=== PATIENT | male | born 1970 | race Two or more races ===

== ENCOUNTER 2020-01-31 06:04 | Day surgery (SDC) | payer OTHER, SELFPAY ==
[2020-01-23 14:23] VITALS: BMI 36.1
--- NOTE | 2020-01-26 15:32 | P.CONAN_ITS ---
Documented by User: Marjan Ann 01/26/20 15:34 HPI - Anesthesia Eval Consult details Narrative: 49yo M for EGD and Colonoscopy REPLACED BY [facility] Past Medical History Medical History (Updated 01/31/20 @ 07:35 by Tiarra Avery) Anxiety GERD (gastroesophageal reflux disease) Glaucoma High BMI History of headache HTN (hypertension) Insomnia Multiple fractures Renal calculi Sleep apnea Status post open reduction and internal fixation (ORIF) of fracture Venous stasis Surgical History Surgical History H/O gastric bypass H/O hand surgery History of cholecystectomy Hx of colonoscopy Hx of esophagogastroduodenoscopy Social History Social History Smoking Status: Never smoker Use of substances other than those prescribed or required for medical reasons: No Advance Directives Information Provided: No Meds Allergies Allergy/AdvReac Type Severity Reaction Status Date / Time hydromorphone [From DILAUDID] Allergy Severe STOPPED Verified 01/23/20 14:32 BREATHING Home Medications Medication Instructions Recorded Confirmed Type amitriptyline 50 mg PO BEDTIME 01/23/20 01/23/20 History buprenorphine-naloxone [Suboxone] 1 film SUBLINGUAL DAILY 01/23/20 01/23/20 History clonazepam 2 mg PO BEDTIME 01/23/20 01/23/20 History gabapentin 400 mg PO TID 01/23/20 01/23/20 History lisinopril 10 mg PO DAILY 01/23/20 01/23/20 History meclizine 25 mg PO DAILY PRN 01/23/20 01/23/20 History pantoprazole 40 mg PO DAILY 01/23/20 01/23/20 History prazosin 6 mg PO BEDTIME 01/23/20 01/23/20 History ramelteon [Rozerem] 8 mg PO BEDTIME 01/23/20 01/23/20 History Exam Exam Date and Time: January 26, 2020 1532 Height,Weight and Vital Signs: Height 5 ft 6 in Weight 101.605 kg Assessment and Plan Assessment Anesthesia Assessment: Chart Reviewed Documented by User: Tiarra Avery 01/31/20 07:38 REPLACED BY [facility] Past Medical History Medical History (Updated 01/31/20 @ 07:35 by Tiarra Avery) Anxiety GERD (gastroesophageal reflux disease) Glaucoma High BMI History of headache HTN (hypertension) Insomnia Multiple fractures Renal calculi Sleep apnea Status post open reduction and internal fixation (ORIF) of fracture Venous stasis Surgical History Surgical History H/O gastric bypass H/O hand surgery History of cholecystectomy Hx of colonoscopy Hx of esophagogastroduodenoscopy Social History Social History Smoking Status: Never smoker Use of substances other than those prescribed or required for medical reasons: No Advance Directives Information Provided: No Meds Allergies Allergy/AdvReac Type Severity Reaction Status Date / Time hydromorphone [From DILAUDID] Allergy Severe STOPPED Verified 01/23/20 14:32 BREATHING Home Medications Medication Instructions Recorded Confirmed Type amitriptyline 50 mg PO BEDTIME 01/23/20 01/23/20 History buprenorphine-naloxone [Suboxone] 1 film SUBLINGUAL DAILY 01/23/20 01/23/20 History clonazepam 2 mg PO BEDTIME 01/23/20 01/23/20 History gabapentin 400 mg PO TID 01/23/20 01/23/20 History lisinopril 10 mg PO DAILY 01/23/20 01/23/20 History meclizine 25 mg PO DAILY PRN 01/23/20 01/23/20 History pantoprazole 40 mg PO DAILY 01/23/20 01/23/20 History prazosin 6 mg PO BEDTIME 01/23/20 01/23/20 History ramelteon [Rozerem] 8 mg PO BEDTIME 01/23/20 01/23/20 History Exam Narrative Narrative: Full Neck Airway Mallampati Class: II TM Dist: >3cm Neck ROM: Full Heart: RRR Lungs: CTA Assessment and Plan Assessment Anesthesia Assessment: Anesthesia Plan Discussed and Chart Reviewed Final Anesthetic Review NPO: Yes ASA Class: III Final Preanesthetic Review: Meds/Allgs Chart Reviewed, Consent Obtained/Reviewed and Anes Risks/Benef Reviewed Patient Risk: Intermediate Procedure Risk: Intermediate Anesthetic Plan Anesthetic Plan: MAC: Disposition: Standard PACU
[2020-01-31 06:46] VITALS: BP 125/80; PULSE 85; RESP 16; TEMP 36.8; O2SAT 94
[2020-01-31] MEDS: Lactated Ringers 1,000 ML 100 ML IVCONT (07:04)
--- NOTE | 2020-01-31 07:33 | MHC.SHP ---
Pre-Procedural Eval Section A The patient is an INPATIENT: No The History & Physical has been completed within 30 days and I have reviewed it.: Yes Section B Chief Complaint: Screening, Gerd Details of Present Illness: Colon cancer screening, GERD Relevant Family History (Specify if Yes): No Relevant Social History: None Present Medications: see Short Stay Collaborative assessment Medical History: Significant History (Headaches, glaucoma, insomnia, anxiety, kidney stones, multiple fractures due to trauma, hypertension, RLE venous stasis, GERD.) History of Previous Operations: Relevant previous surgery/procedure and date(s) ( Lap choly 2016, right hand surgery 2016, EGD 2016, colonoscopy Dr. Mckeon 2014, right forearm OROF, right ankle ORIF, left leg or IBS, gastric bypass, REV LRYGB 12/20-.) Allergies: Allergies Allergy/AdvReac Type Severity Reaction Status Date / Time hydromorphone [From DILAUDID] Allergy Severe STOPPED Verified 01/23/20 14:32 BREATHING Review of Systems Sugical H&P ROS: Negative: Cardiovascular, Respiratory, Gastrointestinal, Genitourinary and Musculoskeletal and Yes, Specify: Constitution (Morbidly obese) Exam Surgical H&P Exam: Normal: HEENT, Normal: Heart, Normal: Lungs and Normal: Abdomen Exam Comment: Morbidly obese Plan Diagnosis/Plan: Unchanged Patient has been examined and remains a candidate for the planned procedure
[2020-01-31 08:54] VITALS: BP 116/77; PULSE 84; RESP 12; TEMP 36.2; O2SAT 95
[2020-01-31 09:14] VITALS: BP 119/80; PULSE 80; RESP 18; TEMP 36.1; O2SAT 96
--- NOTE | 2020-01-31 09:30 | HO.POSTANES ---
Post Anesthesia Evaluation Post Anesthesia Evaluation Vital Signs: Vital Signs Temp Pulse Resp BP Pulse Ox 01/31/20 09:14 97 F 80 18 119/80 96 01/31/20 08:54 97.2 F 84 12 116/77 95 01/31/20 06:46 98.2 F 85 16 125/80 94 Anesthesia: Monitored Mental Status: Awake Pain Control: Satisfactory Nausea/Vomiting: None Hydration: Adequate Anesthesia-Related Issues: No Anes. Related Issues
--- NOTE | 2020-02-26 14:57 | P.OP_ITS ---
Operative Note Operative Note Narrative: Date of procedure: 01/31/20 Pre-op diagnosis: Colon cancer screening, GERD Post-op diagnosis: other (RYGB anatomy, diverticulosis, hemorrhoids) Procedure: FLEXIBLE TRANSORAL UPPER GASTROINTESTINAL ENDOSCOPY AND COLONOSCOPY TILL CECUM UPPER ENDOSCOPY Consent: Indications for the procedure and potential complications of bleeding, perforation, reaction to medications and missed diagnosis were discussed with the patient and informed consent was obtained. Instrument: Olympus GIF H 190 mid size upper endoscope Monitoring: Vital signs and clinical assessment, continuous EKG monitoring, Pulse oximetry, Carbon Dioxide monitoring and blood pressure monitoring were done throughout the procedure. Procedure: The patient was placed in the left lateral decubitis position and pre-procedure medications were administered and a bite block was placed. The endoscope was inserted into the mouth and advanced under direct vision to the third part of duodenum. A careful inspection was made as the upper endoscope was withdrawn including a retroflexed examination of the proximal stomach; Findings and interventions are described below. Findings: Larynx: Normal Esophagus: GE junction at 35 cms. Tortuous esophagus with increased tertiary contractions without stricture or ring. No esophagitis or Mercedes's.. Stomach: Christopher en Y Gastric bypass anatomy. Normal anastomosis at 37 cms. Biopsies were obtained from the gastric pouch to check for H Pylori. Jejunum: Normal Christopher limb. Intervention: Biopsies as noted above COLONOSCOPY PROCEDURE NOTE Instrument: Olympus PCF H 190 L variable stiffness pediatric colonoscope Monitoring: Vital signs and clinical assessment, intermittent blood pressure monitoring, continuous EKG monitoring, Pulse oximetry and Carbon Dioxide monitoring were done throughout the procedure. Colon withdrawl time was 15 minutes. Procedure: The patient was placed in the left lateral decubitis position and pre-procedure medications were administered. After a digital rectal examination of the ano-rectum, the video colonoscope was inserted into the rectum and advanced through the colon to the cecum. The colonoscope was slowly withdrawn in a retrograde panoramic fashion and the colon mucosa was carefully examined including a retroflexed view of the rectum. Findings and interventions are described below. Procedure Difficulty: Without difficulty Findings: Terminal Ileum: Not evaluated Cecum: Normal Ascending Colon: Normal Transverse Colon: Normal Descending Colon: Normal Sigmoid Colon: Moderate diverticulosis Rectum: Normal Ano-rectum: Moderate internal hemorrhoids Colon preparation: Good after some irrigation Impression and Post Procedure Diagnosis: Endoscopy Findings: ESOPHAGUS: GE junction at 35 cms. Tortuous esophagus with increased tertiary contractions without stricture or ring. No esophagitis or Mercedes's. STOMACH: Christopher en Y Gastric bypass anatomy. Normal anastomosis at 37 cms. Biopsies were obtained from the gastric pouch to check for H Pylori. JEJUNUM: Normal Christopher limb. Colonoscopy Findings: No polyps were detected Moderate diverticulosis seen in the sigmoid colon Moderate hemorrhoids on retroflexed exam. Plan: Await pathology results Patient has an appointment on 02[facility]14/20in [facility] with LEESA Gustafson. Repeat Colonoscopy in 10 years. Above findings were reviewed with the patient and diverticulosis handouts were given in the discharge area Surgeon: Ja Pedro MD Anesthesia: MAC (Dee Dee Allan CRNA & Dr Avery) Dock Supervisor: Betina Guido Pathology: other (Gastric pouch.) Condition: stable Disposition: PACU
== END 2020-01-31 10:01 | disposition home or self-care (01) ==
PROVIDERS: PCP Internal Medicine; Visit Provider Internal Medicine Gastroenterology
PROC: (CPT 45378; principal; 2020-01-31 07:20)
DX: Z12.11 Encounter for screening for malignant neoplasm of colon (principal); K57.30 Diverticulosis of large intestine without perforation or abscess without bleeding; K64.8 Other hemorrhoids; K21.9 Gastro-esophageal reflux disease without esophagitis; K22.8 Other specified diseases of esophagus; Z98.84 Bariatric surgery status; Z98.0 Intestinal bypass and anastomosis status
CPT/HCPCS: 45378; 43239; 88305; 88342

== ENCOUNTER → 2020-02-21 12:41 | Outpatient (BNVA) | payer OTHER, SELFPAY | PROVIDERS: PCP Internal Medicine; Visit Provider Physician Assistant | DX: K57.30 Diverticulosis of large intestine without perforation or abscess without bleeding (principal); K64.9 Unspecified hemorrhoids; Z98.890 Other specified postprocedural states | CPT/HCPCS: 99212 ==

== ENCOUNTER 2020-05-16 13:20 | Outpatient (REF) | payer OTHER, SELFPAY | END 2020-05-16 13:21 | disposition home or self-care (01) | LOC: HO.LAB 13:20 | PROVIDERS: PCP Internal Medicine; Visit Provider Internal Medicine | DX: Z20.822 Contact with and (suspected) exposure to COVID-19 (principal) | CPT/HCPCS: 36415; C9803; U0003 ==

== ENCOUNTER 2020-09-26 10:50 | Outpatient (REF) | payer OTHER, SELFPAY ==
[2020-09-26 11:42] LABS: MANUAL DIFF FLAG NO
[2020-09-26 11:47] LABS: Basophils Percent Auto 0.6 % (0-2); Eosinophils Absolute Auto 0.3 X10*3/uL (0.0-0.4); Eosinophils Percent Auto 4.1 % (0-4); Hematocrit 34.6 % (42-52); Hemoglobin 11.3 g/dl (14.0-18.0); Imm Gran Abs Auto 0.01 X10*3/uL (0.00-0.03); Imm Gran Pct Auto 0.2 % (0.0-0.4); Lymphocytes Absolute Auto 2.3 X10*3/uL (1.2-4.9); Mean Corpuscular HGB Conc 32.7 g/dl (31.0-36.0); Mean Corpuscular Hemoglobin 27.8 pg (27.0-33.0); Mean Platelet Volume 11.5 fL (9.4-12.4); Monocytes Absolute Auto 0.5 X10*3/uL (0.1-1.2); Monocytes Percent Auto 8.6 % (2-11); Neutrophils Absolute Auto 3.2 X10*3/uL (2.0-8.3); Neutrophils Percent Auto 50.5 % (45-73); Platelet Count 182 X10*3/uL (160-400); Red Blood Count 4.07 X10*6/uL (4.60-5.80); Red Cell Distribution Width 13.9 % (11.0-16.0); White Blood Count 6.3 X10*3/uL (4.8-10.8)
--- NOTE | 2020-09-26 12:16 | ECG_ITS ---
Test Reason : PREOP Blood Pressure : / mmHG Vent. Rate : 073 BPM Atrial Rate : 073 BPM P-R Int : 168 ms QRS Dur : 090 ms QT Int : 384 ms P-R-T Axes : 072 -23 013 degrees QTc Int : 423 ms Normal sinus rhythm Normal ECG When compared to the previous EKG of No significant changes seen Referred By: Paul Madison Electronically Signed By:CARMITA REY MD
[2020-09-26 12:27] LABS: Alanine Aminotransferase 15 U/L (0-40); Albumin Level 3.6 g/dL (3.5-5.0); Alkaline Phosphatase 135 U/L (39-117); Anion Gap 10 (12-20); Aspartate Amino Transferase 27 U/L (5-37); Bilirubin Total 0.6 mg/dL (0.0-1.0); Blood Urea Nitrogen 15 mg/dL (9-16); Calcium 8.5 mg/dL (8.4-10.2); Carbon Dioxide 28 mmol/L (22-29); Chloride 106 mmol/L (96-108); Estimated Glomerular Filt Rate > 60; Glucose Random 118 mg/dL (60-115); Potassium 3.8 mmol/L (3.3-5.1); Sodium 140 mmol/L (135-145); Total Protein 6.3 g/dL (6.5-8.0)
== END 2020-09-26 10:51 | disposition home or self-care (01) ==
LOC: HO.LAB 10:50
PROVIDERS: PCP Internal Medicine; Visit Provider Internal Medicine
DX: Z01.818 Encounter for other preprocedural examination (principal); I10 Essential (primary) hypertension
CPT/HCPCS: 36415; 80053; 85025; 93005

== ENCOUNTER 2020-12-21 08:55 | Outpatient (REF) | payer OTHER, SELFPAY ==
[2020-12-21 09:21] LABS: MANUAL DIFF FLAG NO
[2020-12-21 09:27] LABS: Basophils Percent Auto 0.6 % (0-2); Eosinophils Absolute Auto 0.3 X10*3/uL (0.0-0.4); Eosinophils Percent Auto 4.9 % (0-4); Hematocrit 30.3 % (42-52); Hemoglobin 9.6 g/dl (14.0-18.0); Imm Gran Abs Auto 0.02 X10*3/uL (0.00-0.03); Imm Gran Pct Auto 0.4 % (0.0-0.4); Lymphocytes Absolute Auto 1.5 X10*3/uL (1.2-4.9); Mean Corpuscular HGB Conc 31.7 g/dl (31.0-36.0); Mean Corpuscular Hemoglobin 25.8 pg (27.0-33.0); Mean Corpuscular Volume 81.5 fL (80-98); Mean Platelet Volume 10.9 fL (9.4-12.4); Monocytes Absolute Auto 0.6 X10*3/uL (0.1-1.2); Monocytes Percent Auto 11.1 % (2-11); Neutrophils Absolute Auto 2.8 X10*3/uL (2.0-8.3); Platelet Count 182 X10*3/uL (160-400); Red Blood Count 3.72 X10*6/uL (4.60-5.80); Red Cell Distribution Width 14.3 % (11.0-16.0); White Blood Count 5.1 X10*3/uL (4.8-10.8)
[2020-12-21 09:57] LABS: Alanine Aminotransferase 28 U/L (0-40); Albumin Level 3.8 g/dL (3.5-5.0); Alkaline Phosphatase 145 U/L (39-117); Anion Gap 9 (12-20); Aspartate Amino Transferase 35 U/L (5-37); Bilirubin Total 0.7 mg/dL (0.0-1.0); Blood Urea Nitrogen 12 mg/dL (9-16); Calcium 8.5 mg/dL (8.4-10.2); Carbon Dioxide 26 mmol/L (22-29); Chloride 107 mmol/L (96-108); Cholesterol 182 mg/dL; Estimated Glomerular Filt Rate > 60; Glucose Fasting 95 mg/dL (60-99); HDL Cholesterol 48 mg/dL; LDL Cholesterol Calculated 124 mg/dl; Potassium 3.9 mmol/L (3.3-5.1); Sodium 138 mmol/L (135-145); Total Protein 6.5 g/dL (6.5-8.0); Triglycerides 53 mg/dL
[2020-12-21 10:12] LABS: Thyroid Stimulating Hormone 2.74 uIU/mL (0.32-4.0)
[2020-12-27 14:07] LABS: Vitamin D 25-OH, D2 <4 ng/mL; Vitamin D 25-OH, D3 29 ng/mL; Vitamin D 25-OH, Total 29 ng/mL (30-100)
== END 2020-12-21 08:56 | disposition home or self-care (01) ==
LOC: HO.LAB 08:55
PROVIDERS: PCP Internal Medicine; Visit Provider Internal Medicine
DX: E66.01 Morbid (severe) obesity due to excess calories (principal); E78.5 Hyperlipidemia, unspecified; I10 Essential (primary) hypertension; E55.9 Vitamin D deficiency, unspecified
CPT/HCPCS: 36415; 80053; 80061; 82306; 84443; 85025

== ENCOUNTER 2022-09-24 17:09 | Observation (INO) | payer OTHER, SELFPAY ==
--- NOTE | ~2022-09-24 | CT_ITS ---
EXAMINATION: CT ANGIOGRAM OF THE CHEST WITH AND WITHOUT CONTRAST (CT PULMONARY ANGIOGRAM FOR PE) CLINICAL INFORMATION: Reason for Exam + dimer, ams COMPARISON: Chest radiograph 09/24/2022 TECHNIQUE: Prior to contrast administration, noncontrast localization images were obtained. Subsequently, multidetector volumetric imaging was performed from the thoracic inlet to below the diaphragms following the administration of 75 mL Omnipaque 350 intravenous contrast. No contrast reaction reported Sagittal, coronal, and MIP oblique sagittal reformatted images were obtained on the CT workstation, uploaded to PACS, and reviewed. This CT examination was performed using dose optimization techniques as appropriate, variously including the following: *Automated exposure control *Adjustment of mA and/or kV according to patient size (this includes techniques or standardized protocols for targeted exams where dose is matched to indication/reason for exam; i.e. extremities or head) *Use of iterative reconstruction technique Total exam dose-length product 573 mGy-cm FINDINGS: QUALITY OF STUDY/CONTRAST BOLUS: Suboptimal. PULMONARY ARTERIES: Respiratory motion limits evaluation for subsegmental pulmonary emboli. No central, lobar or segmental pulmonary embolism. THORACIC AORTA: No aneurysm. CHEST WALL/AXILLA: No axillary lymphadenopathy. LUNGS: 4 mm solid right middle lobe pulmonary nodule, 7:169. A 3 mm solid left upper lobe pulmonary nodule, 7:161. 3 mm solid left lower lobe pulmonary nodule, 7:268. MEDIASTINUM: Heart is normal in size. No mediastinal lymphadenopathy. No hilar lymphadenopathy. CORONARY ARTERY CALCIFICATION: Coronary artery calcification is present. PLEURA: There is no pleural effusion. UPPER ABDOMEN: Status post cholecystectomy. Postsurgical changes of gastric bypass. Right hepatic lobe granulomas. OSSEOUS STRUCTURES: Remote healed right rib fracture deformities. CT/CT angio chest PE protocol IMPRESSION: * Respiratory motion limits evaluation for subsegmental pulmonary emboli. No central, lobar or segmental pulmonary embolism. * Several small solid pulmonary nodules measuring up to 4 mm. Assuming patient has no history of malignancy, recommend follow-up per Fleischner Society recommendations. According to the UPDATED 2017 Fleischner Society recommendations, the advised followup imaging for solid nodules < 6 mm is: LOW RISK PATIENT: No routine follow up. HIGH RISK PATIENT: Optional CT at 12 months. * Coronary artery calcification is present. Recommend collection with cardiac risk factors.
--- NOTE | ~2022-09-24 | MR_ITS ---
MRI OF THE BRAIN WITHOUT IV CONTRAST INDICATION: Question CVA. COMPARISON: Head CT 09/24/2022 TECHNIQUE: Multiplanar multisequence MR imaging of the brain was obtained without IV contrast. FINDINGS: There is no hydrocephalus, extra-axial surface collection, or herniation. There is mild chronic microangiopathy an there are chronic lacunar infarcts within the cerebellar hemispheres bilaterally. The major flow voids at the skull base are preserved. There is no acute infarct on diffusion-weighted imaging. There is no intracranial hemorrhage on the gradient recalled echo acquisition. The midline structures are normal. The cerebellar tonsils are normally positioned. The cerebellum and brainstem are normal. The craniocervical junction is normal. Osseous marrow signal intensity is homogenous. Right globe prosthesis. MR/MR head/brain wo con IMPRESSION: - No acute intracranial findings. No acute infarcts. - There is mild chronic microangiopathy an there are chronic lacunar infarcts within the cerebellar hemispheres bilaterally.
--- NOTE | ~2022-09-24 | CT_ITS ---
EXAMINATION: CT head/brain wo IV con CLINICAL INFORMATION: Reason for Exam ams COMPARISON: None. TECHNIQUE: Contiguous axial imaging was performed from the skull base to vertex without intravenous contrast. Sagittal and coronal reformatted images were obtained. This CT examination was performed using dose optimization techniques as appropriate, variously including the following: * Automated exposure control * Adjustment of mA and/or kV according to patient size (this includes techniques or standardized protocols for targeted exams where dose is matched to indication/reason for exam; i.e. extremities or head) Use of iterative reconstruction technique DLP: 869 mGy-cm FINDINGS: No acute osseous or soft tissue abnormality. Patchy paranasal sinus mucosal thickening. Periodontal disease. Mastoid air cells appear clear. Right globe prosthesis. There is no evidence of acute intracranial hemorrhage. Age indeterminant bilateral cerebellar lacunar infarcts. No abnormal mass effect or midline shift is seen. Michele to white matter differentiation is well preserved. No extra-axial fluid collections are identified. No hydrocephalus. CT/CT head/brain wo IV con IMPRESSION: 1. Age-indeterminate bilateral cerebellar lacunar infarcts. 2. Additional incidental findings as detailed above.
--- NOTE | ~2022-09-24 | XR_ITS ---
EXAMINATION: PORTABLE CHEST 1 VIEW CLINICAL INFORMATION: cp. COMPARISON: 10/01/2018. TECHNIQUE: Portable frontal view of the chest was obtained. FINDINGS: The lungs are hypoexpanded with basilar atelectasis. No focal infiltrate, effusion, edema, or pneumothorax. Central vascular markings likely related to the degree of hypoexpansion and portable technique. Cardiac and mediastinal silhouettes are within normal limits for technique. No acute bony abnormality seen. XR/XR chest 1V IMPRESSION: Hypoexpanded with basilar markings more likely due to atelectasis.
--- NOTE | 2022-09-24 17:19 | ECG_ITS ---
Test Reason : cp Blood Pressure : / mmHG Vent. Rate : 079 BPM Atrial Rate : 079 BPM P-R Int : 178 ms QRS Dur : 086 ms QT Int : 370 ms P-R-T Axes : 053 -30 010 degrees QTc Int : 424 ms Normal sinus rhythm Left axis deviation Minimal voltage criteria for LVH, may be normal variant ( R in aVL ) Abnormal ECG When compared with ECG of 26-SEP-2020 12:23, No significant change was found Referred By: Mat Bryan Electronically Signed By:Jarrett Shirley
--- NOTE | 2022-09-24 17:35 | ED.GENADULT ---
HPI - General Adult General Chief complaint: Altered Mental Status Stated complaint: AMS, LETHARGIC Time Seen by Provider: 09/24/22 17:18 Source: EMS Mode of arrival: EMS Limitations: no limitations and altered mental status History of Present Illness HPI narrative: 52-year-old male history of glaucoma, hypertension, opiate use disorder on Suboxone, obesity, TIA, GERD presenting to the emergency department for altered mental status, according to EMS he was found in a vehicle at [facility] in [place], pale, diaphoretic, not responding to questions. Unable to obtain history review of systems from patient as he is not responding to my questions however on arrival his vital signs are stable he appears nontoxic. Last known well time on clear To note, upon at my initial exam patient is intermittently following commands. Nodding his head to yes or no questions. Able to squeeze my hands upon asking patient to do so. No evident signs of trauma. Unable to obtain an NIH stroke scale due to patient not being able to participate in exam. Related Data Home Medications Medication Instructions Recorded Confirmed buprenorphine 4 mg-naloxone 1 mg 1 film sublingual DAILY 01/23/20 12/31/20 sublingual film (Suboxone) clonazepam 2 mg tablet 2 mg PO BEDTIME 01/23/20 12/31/20 Previous Rx's Medication Instructions Recorded Shower Chair #1 ea 10/17/20 hand held shower head #1 ea 10/17/20 hand rail for shower #1 ea 10/17/20 shower mat #1 ea 10/17/20 toilet seat elevator with handles #1 10/17/20 amitriptyline 50 mg tablet 50 mg PO BEDTIME 90 days #90 tabs 07/03/22 lisinopril 10 mg tablet 10 mg PO DAILY 90 days #90 tabs 07/18/22 meclizine 25 mg tablet 25 mg PO DAILY PRN Vertigo 90 days 08/31/22 #90 tabs gabapentin 600 mg tablet 600 mg PO TID 30 days #90 tabs 09/23/22 Allergies Allergy/AdvReac Type Severity Reaction Status Date / Time hydromorphone [From DILAUDID] Allergy Severe STOPPED Verified 09/12/22 10:17 BREATHING aripiprazole [Abilify] AdvReac Intermediate anxious Verified 09/12/22 10:17 Review of Systems Review of Systems: Yes Unobtainable due to mental status [facility] Past Medical History Attestation statement: The following information was validated with the patient. Source: old records reviewed and nursing notes reviewed Medical History (Updated 09/24/22 @ 21:53 by LEESA Pope) Anxiety Benign essential hypertension Degenerative joint disease of right ankle Diverticulosis large intestine w/o perforation or abscess w/o bleeding GERD (gastroesophageal reflux disease) GERD without esophagitis Glaucoma Hemorrhoids High BMI History of headache HTN (hypertension) Hx of substance abuse Insomnia Mild recurrent major depression Morbid obesity due to excess calories Morbid obesity with BMI of 45.0-49.9, adult Multiple fractures Normocytic anemia Opioid dependence on agonist therapy Renal calculi Sleep apnea Unable to bear weight Venous stasis Surgical History H/O gastric bypass H/O hand surgery History of cholecystectomy Hx of colonoscopy Hx of esophagogastroduodenoscopy Status post open reduction and internal fixation (ORIF) of fracture Family History Family History Mother No problems noted. Father No problems noted. Social History Social History Household Members: Significant Other Housing: Apartment Alcohol intake: never Patient Tobacco Use Status: Never used Tobacco Smoked in Last 30 Days: No e-Cigarette/Vaping Use: Never Used Second Hand Smoke Exposure: No Use of substances other than those prescribed or required for medical reasons: No Advance Directives: No Advance Directives Information Provided: No service: No Current occupational status: disabled Cognitive needs: Yes (cane) Hearing needs: No Vision needs: Yes (glasses) Physical Exam ED Vital Signs: Vital Signs - 24 hr 09/24/22 17:38 09/24/22 19:32 Temperature 97.6 F 97.7 F Pulse Rate 79 73 Respiratory Rate 12 20 Blood Pressure 146/66 H 113/71 Pulse Oximetry 98 Oxygen Delivery Method Room Air Room Air BMI result Body Mass Index 41.6 Vital signs stable. Appearance: Alert.? Awake. Not answering questions not speaking. Intermittently following commands.? No acute distress.? Head: Normocephalic, atraumatic, no step-offs or deformities Eyes: Left pupil, round and reactive to light.? Patient has a glass right eye. Positive corneal reflex on the left. ENT: Pharynx normal.? Neck: Normal inspection.? Neck supple.? CVS: Normal heart rate and rhythm.? Pulses normal.? Respiratory: No respiratory distress.? Breath sounds normal.? Abdomen: Soft and nontender.? Skin: Skin warm and dry.? Normal skin color.? Normal skin turgor.? Extremities: No lower extremity edema.? No calf ttp. 5/5 strength to bilateral upper and lower extremities Back: No midline tenderness, no C-spine tenderness, full range of motion, no CVA tenderness bilaterally Neuro: Patient not participating and neurological assessment. Course Reevaluation(s) Reevaluation #1: Patient's arrives and tells me that she received a phone call from patient while he was in the [facility] parking lot stating he was not feeling well, she reports that this is all patient was saying. She states suddenly stopped talking, she went to [facility] and found him diaphoretic and pale. When I ask her about patient's medical history she denies history of opiate abuse and is not aware that patient is on Suboxone. When I went back into the room patient was speaking without difficulty to family members. Clear sentences. States wants to get out here. Time: 17:39 Reevaluation #2: Patient is still conversing with family at the bedside. Call out to Neurology, CT showing age-indeterminate bilateral lacunar infarct. Patient's NIH stroke scale 0 at this time, now participating in neurological exam. Normal [id number], [id number]. Time: 19:39 Reevaluation #3: Discussed this case with Dr. Cartagena who states that unlikely that this is a stroke case likely a different etiology. No indication for tPA. Time: 19:40 Additional Reevaluation(s): UA unremarkable, urine toxicology negative. CT head and brain age indeterminate bilateral cerebellar lacunar infarcts. I do not suspect acute stroke based off patient's presentation, more concerning for possible TIA. CTA of chest pending. Patient to be admitted to the hospital for observation. Medications Administered Discontinued Medications Generic Name Dose Route Start Last Admin Trade Name Freq PRN Reason Stop Dose Admin Sodium Chloride 1,000 mls @ 999 mls/hr 09/24/22 17:30 09/24/22 19:48 Ns IV 09/24/22 18:30 Infused .Q1H1M AVA Infusion Iohexol 100 ml 09/24/22 19:43 09/24/22 19:43 Iohexol 350 Mg/Ml 100 Ml Infus..Btl IV 09/24/22 19:44 75 ml ONCE ONE Administration Medical Decision Making Medical Decision Making MDM Narrative: 52-year-old male presents for altered mental status brought in by ambulance unable to provide history review of systems. Found in [facility] parking lot. Family coming to the hospital per EMS. Physical exam patient not responding to questions, not participating in history, or physical, unable to obtain an accurate NIH stroke scale. Regular rate and rhythm. Lungs clear. Abdomen soft nontender nondistended. No evidence of trauma at this time. Concerns for possible polysubstance abuse, psychiatric etiology. Will rule out intracranial hemorrhage or stroke although unlikely. Unlikely metabolic derangements or electrolyte abnormalities or infection. Plan basic labs, imaging, urine. Will obtain more information from family when they arrive. Differential Diagnosis Differential Diagnoses: The differential diagnosis associated with the presentation includes Concerns for possible polysubstance abuse, psychiatric etiology. Will rule out intracranial hemorrhage or stroke although unlikely. Unlikely metabolic derangements or electrolyte abnormalities or infection. Lab Data 09/24/22 17:51 09/24/22 17:51 Labs: Lab Results 09/24/22 09/24/22 09/24/22 Range/Units 17:50 17:50 17:50 WBC (4.8-10.8) X10*3/uL RBC (4.60-5.80) X10*6/uL Hgb (14.0-18.0) g/dl Hct (42.0-52.0) % MCV (80.0-98.0) fL MCH (27.0-33.0) pg MCHC (31.0-36.0) g/dl RDW (11.0-16.0) % Plt Count (160-400) X10*3/uL MPV (9.4-12.4) fL Immature Gran % (Auto) (0.0-0.4) % Neut % (Auto) (45-73) % Lymph % (Auto) (20-40) % Barber % (Auto) (2-11) % Eos % (Auto) (0-4) % Baso % (Auto) (0-2) % Lymph # (Auto) (1.2-4.9) X10*3/uL Barber # (Auto) (0.1-1.2) X10*3/uL Eos # (Auto) (0.0-0.4) X10*3/uL Baso # (Auto) (0.0-0.2) X10*3/uL Abs Immat Gran (auto) (0.00-0.03) X10*3/uL Absolute Neuts (auto) (2.0-8.3) x10*3/uL Absolute Nucleated RBC (0.0-0.012) X10*3/uL Nucleated RBC % (auto) (0.0-0.2) /100WBC D-Dimer High Sensitivty NG/ML Sodium (135-145) mmol/L Potassium (3.3-5.1) mmol/L Chloride (96-108) mmol/L Carbon Dioxide (22-29) mmol/L Anion Gap (12-20) BUN (9-16) mg/dL Creatinine (0.5-1.4) mg/dL Estim Creat Clear Calc Estimated GFR Random Glucose (60-115) mg/dL Lactic Acid 1.3 (0.5-2.0) mmol/L Calcium (8.4-10.2) mg/dL Magnesium (1.6-2.6) mg/dL Total Bilirubin (0.0-1.0) mg/dL AST (5-37) U/L ALT (0-40) U/L Alkaline Phosphatase (39-117) U/L Total Creatine Kinase (38-174) U/L Troponin I High Sens (<3.5-35.0) ng/L B-Natriuretic Peptide 26 (<100) pg/mL Total Protein (6.5-8.0) g/dL Albumin (3.5-5.0) g/dL Urine Color Urine Appearance Urine pH (5.0-9.0) Ur Specific Pheba (1.005-1.025) Urine Protein (Neg-Trace) mg/dL Urine Glucose (UA) (Negative) mg/dL Urine Ketones (Negative) mg/dL Urine Blood (Negative) Urine Nitrite (Negative) Ur Leukocyte Esterase (Negative) Salicylates (15-30) mg/dL Urine Opiates Screen (Not Detect) Urine Fentanyl Screen (Not Detect) Acetaminophen (<30) mcg/mL Ur Barbiturates Screen (Not Detect) Ur Phencyclidine Scrn (Not Detect) Ur Amphetamines Screen (Not Detect) U Benzodiazepines Scrn (Not Detect) Urine Cocaine Screen (Not Detect) U Marijuana (THC) Screen (Not Detect) Ethyl Alcohol mg/dL COVID-19 (MIRANDA) Negative (Negative) COVID-19 Clin Com See Note 09/24/22 09/24/22 09/24/22 Range/Units 17:51 17:51 17:51 WBC 7.5 (4.8-10.8) X10*3/uL RBC 4.41 L (4.60-5.80) X10*6/uL Hgb 11.5 L (14.0-18.0) g/dl Hct 36.8 L (42.0-52.0) % MCV 83.4 (80.0-98.0) fL MCH 26.1 L (27.0-33.0) pg MCHC 31.3 (31.0-36.0) g/dl RDW 14.9 (11.0-16.0) % Plt Count 185 (160-400) X10*3/uL MPV 11.5 (9.4-12.4) fL Immature Gran % (Auto) 0.3 (0.0-0.4) % Neut % (Auto) 65.7 (45-73) % Lymph % (Auto) 19.5 L (20-40) % Barber % (Auto) 10.1 (2-11) % Eos % (Auto) 3.7 (0-4) % Baso % (Auto) 0.7 (0-2) % Lymph # (Auto) 1.5 (1.2-4.9) X10*3/uL Barber # (Auto) 0.8 (0.1-1.2) X10*3/uL Eos # (Auto) 0.3 (0.0-0.4) X10*3/uL Baso # (Auto) 0.1 (0.0-0.2) X10*3/uL Abs Immat Gran (auto) 0.02 (0.00-0.03) X10*3/uL Absolute Neuts (auto) 4.9 (2.0-8.3) x10*3/uL Absolute Nucleated RBC 0.000 (0.0-0.012) X10*3/uL Nucleated RBC % (auto) 0.0 (0.0-0.2) /100WBC D-Dimer High Sensitivty 271 NG/ML Sodium 141 (135-145) mmol/L Potassium 4.5 (3.3-5.1) mmol/L Chloride 106 (96-108) mmol/L Carbon Dioxide 27 (22-29) mmol/L Anion Gap 13 (12-20) BUN 11 (9-16) mg/dL Creatinine 1.08 (0.5-1.4) mg/dL Estim Creat Clear Calc 101.4 Estimated GFR > 60 Random Glucose 74 (60-115) mg/dL Lactic Acid (0.5-2.0) mmol/L Calcium 8.8 (8.4-10.2) mg/dL Magnesium 2.3 (1.6-2.6) mg/dL Total Bilirubin 0.8 (0.0-1.0) mg/dL AST 28 (5-37) U/L ALT 17 (0-40) U/L Alkaline Phosphatase 152 H (39-117) U/L Total Creatine Kinase 148 (38-174) U/L Troponin I High Sens (<3.5-35.0) ng/L B-Natriuretic Peptide (<100) pg/mL Total Protein 6.8 (6.5-8.0) g/dL Albumin 3.9 (3.5-5.0) g/dL Urine Color Urine Appearance Urine pH (5.0-9.0) Ur Specific Pheba (1.005-1.025) Urine Protein (Neg-Trace) mg/dL Urine Glucose (UA) (Negative) mg/dL Urine Ketones (Negative) mg/dL Urine Blood (Negative) Urine Nitrite (Negative) Ur Leukocyte Esterase (Negative) Salicylates < 5.0 L (15-30) mg/dL Urine Opiates Screen (Not Detect) Urine Fentanyl Screen (Not Detect) Acetaminophen < 17 (<30) mcg/mL Ur Barbiturates Screen (Not Detect) Ur Phencyclidine Scrn (Not Detect) Ur Amphetamines Screen (Not Detect) U Benzodiazepines Scrn (Not Detect) Urine Cocaine Screen (Not Detect) U Marijuana (THC) Screen (Not Detect) Ethyl Alcohol < 10 mg/dL COVID-19 (MIRANDA) (Negative) COVID-19 Clin Com 09/24/22 09/24/22 09/24/22 Range/Units 17:51 18:44 18:44 WBC (4.8-10.8) X10*3/uL RBC (4.60-5.80) X10*6/uL Hgb (14.0-18.0) g/dl Hct (42.0-52.0) % MCV (80.0-98.0) fL MCH (27.0-33.0) pg MCHC (31.0-36.0) g/dl RDW (11.0-16.0) % Plt Count (160-400) X10*3/uL MPV (9.4-12.4) fL Immature Gran % (Auto) (0.0-0.4) % Neut % (Auto) (45-73) % Lymph % (Auto) (20-40) % Barber % (Auto) (2-11) % Eos % (Auto) (0-4) % Baso % (Auto) (0-2) % Lymph # (Auto) (1.2-4.9) X10*3/uL Barber # (Auto) (0.1-1.2) X10*3/uL Eos # (Auto) (0.0-0.4) X10*3/uL Baso # (Auto) (0.0-0.2) X10*3/uL Abs Immat Gran (auto) (0.00-0.03) X10*3/uL Absolute Neuts (auto) (2.0-8.3) x10*3/uL Absolute Nucleated RBC (0.0-0.012) X10*3/uL Nucleated RBC % (auto) (0.0-0.2) /100WBC D-Dimer High Sensitivty NG/ML Sodium (135-145) mmol/L Potassium (3.3-5.1) mmol/L Chloride (96-108) mmol/L Carbon Dioxide (22-29) mmol/L Anion Gap (12-20) BUN (9-16) mg/dL Creatinine (0.5-1.4) mg/dL Estim Creat Clear Calc Estimated GFR Random Glucose (60-115) mg/dL Lactic Acid (0.5-2.0) mmol/L Calcium (8.4-10.2) mg/dL Magnesium (1.6-2.6) mg/dL Total Bilirubin (0.0-1.0) mg/dL AST (5-37) U/L ALT (0-40) U/L Alkaline Phosphatase (39-117) U/L Total Creatine Kinase (38-174) U/L Troponin I High Sens < 2.7 (<3.5-35.0) ng/L B-Natriuretic Peptide (<100) pg/mL Total Protein (6.5-8.0) g/dL Albumin (3.5-5.0) g/dL Urine Color Yellow Urine Appearance Clear Urine pH 8.0 (5.0-9.0) Ur Specific Pheba 1.010 (1.005-1.025) Urine Protein Negative (Neg-Trace) mg/dL Urine Glucose (UA) Negative (Negative) mg/dL Urine Ketones Negative (Negative) mg/dL Urine Blood Negative (Negative) Urine Nitrite Negative (Negative) Ur Leukocyte Esterase Negative (Negative) Salicylates (15-30) mg/dL Urine Opiates Screen Not Detected (Not Detect) Urine Fentanyl Screen Not Detected (Not Detect) Acetaminophen (<30) mcg/mL Ur Barbiturates Screen Not Detected (Not Detect) Ur Phencyclidine Scrn Not Detected (Not Detect) Ur Amphetamines Screen Not Detected (Not Detect) U Benzodiazepines Scrn Not Detected (Not Detect) Urine Cocaine Screen Not Detected (Not Detect) U Marijuana (THC) Screen Not Detected (Not Detect) Ethyl Alcohol mg/dL COVID-19 (MIRANDA) (Negative) COVID-19 Clin Com Critical Care Time Critical Care Time Critical Care Time: No Discharge Plan Discharge Clinical Impression: Altered mental status, Brain TIA Patient Disposition: Still a Patient Instructions: Altered Mental Status (ED), Transient Ischemic Attack (ED) Prescriptions: No Action (DME) Shower Chair Misc See Rx Instructions .ROUTE .MEDSUPPLY Qty: 1 0RF Rx Instructions: As directed (DME) shower mat See Rx Instructions .Route .MEDSUPPLY Qty: 1 0RF Rx Instructions: As directed (DME) toilet seat elevator with handles See Rx Instructions .Route .MEDSUPPLY Qty: 1 0RF Rx Instructions: As directed (DME) hand held shower head See Rx Instructions .Route .MEDSUPPLY Qty: 1 0RF Rx Instructions: As directed (DME) hand rail for shower See Rx Instructions .Route .MEDSUPPLY Qty: 1 0RF Rx Instructions: As directed amitriptyline 50 mg tablet 50 mg PO BEDTIME 90 Days Qty: 90 3RF lisinopril 10 mg tablet 10 mg PO DAILY 90 Days Qty: 90 3RF meclizine 25 mg tablet 25 mg PO DAILY PRN (Reason: Vertigo) 90 Days Qty: 90 1RF gabapentin 600 mg tablet 600 mg PO TID 30 Days Qty: 90 1RF clonazepam 2 mg Tablet 2 mg PO BEDTIME buprenorphine-naloxone [Suboxone] 4-1 mg Film 1 film SUBLINGUAL DAILY
[2022-09-24 17:38] VITALS: BP 146/66; PULSE 79; RESP 12; TEMP 36.4
[2022-09-24 17:55] VITALS: BP 126/87; PULSE 92; O2SAT 97; BMI 41.6
[2022-09-24 17:58] LABS: MANUAL DIFF FLAG NO
[2022-09-24 18:04] LABS: Basophils Absolute Auto 0.1 X10*3/uL (0.0-0.2); Basophils Percent Auto 0.7 % (0-2); Eosinophils Absolute Auto 0.3 X10*3/uL (0.0-0.4); Eosinophils Percent Auto 3.7 % (0-4); Hematocrit 36.8 % (42.0-52.0); Hemoglobin 11.5 g/dl (14.0-18.0); Imm Gran Abs Auto 0.02 X10*3/uL (0.00-0.03); Imm Gran Pct Auto 0.3 % (0.0-0.4); Lymphocytes Absolute Auto 1.5 X10*3/uL (1.2-4.9); Lymphocytes Percent Auto 19.5 % (20-40); Mean Corpuscular HGB Conc 31.3 g/dl (31.0-36.0); Mean Corpuscular Hemoglobin 26.1 pg (27.0-33.0); Mean Corpuscular Volume 83.4 fL (80.0-98.0); Mean Platelet Volume 11.5 fL (9.4-12.4); Monocytes Absolute Auto 0.8 X10*3/uL (0.1-1.2); Monocytes Percent Auto 10.1 % (2-11); Neutrophils Absolute Auto 4.9 x10*3/uL (2.0-8.3); Neutrophils Percent Auto 65.7 % (45-73); Platelet Count 185 X10*3/uL (160-400); Red Blood Count 4.41 X10*6/uL (4.60-5.80); Red Cell Distribution Width 14.9 % (11.0-16.0); White Blood Count 7.5 X10*3/uL (4.8-10.8)
[2022-09-24] MEDS: 0.9 % Sodium Chloride 1,000 ML 999 ML IV (18:11)
[2022-09-24 18:17] LABS: D Dimer High Sensitivity 271 NG/ML
[2022-09-24 18:20] LABS: Lactic Acid 1.3 mmol/L (0.5-2.0)
[2022-09-24 18:23] LABS: COVID-19 Test Negative (Negative); IDNOW Serial# BCCEAD1C
[2022-09-24 18:31] LABS: Alanine Aminotransferase 17 U/L (0-40); Albumin Level 3.9 g/dL (3.5-5.0); Alkaline Phosphatase 152 U/L (39-117); Anion Gap 13 (12-20); Aspartate Amino Transferase 28 U/L (5-37); Bilirubin Total 0.8 mg/dL (0.0-1.0); Blood Urea Nitrogen 11 mg/dL (9-16); Calcium 8.8 mg/dL (8.4-10.2); Carbon Dioxide 27 mmol/L (22-29); Chloride 106 mmol/L (96-108); Creatinine Clr Calc Pharmacy 101.4; Estimated Glomerular Filt Rate > 60; Ethanol < 10 mg/dL; Glucose Random 74 mg/dL (60-115); Magnesium 2.3 mg/dL (1.6-2.6); Potassium 4.5 mmol/L (3.3-5.1); Sodium 141 mmol/L (135-145); Total Protein 6.8 g/dL (6.5-8.0)
[2022-09-24 18:31] LABS: B Type Natriuretic Peptide 26 pg/mL (<100)
[2022-09-24 18:35] LABS: Troponin-I High Sensitivity < 2.7 ng/L (<3.5-35.0)
[2022-09-24 18:53] LABS: Salicylate < 5.0 mg/dL (15-30)
[2022-09-24 18:56] LABS: Appearance Urine Clear; Color Urine Yellow; Glucose Urine UA Negative (Negative); Leukocyte Esterase Urine Negative (Negative); Nitrite Urine Negative (Negative); Urine Blood Negative (Negative); Urine Ketones Negative (Negative); Urine Protein Negative (Neg-Trace)
[2022-09-24 19:32] VITALS: BP 113/71; PULSE 73; RESP 20; TEMP 36.5; O2SAT 98
[2022-09-24] MEDS: iohexoL 350 MG/ML 100 ML INFUS..BTL IV (19:43)
--- NOTE | 2022-09-24 19:49 | PC.NURSE ---
This job specification writer assumed care of this Pt at 1900. Pt appears to be sleeping,awakens upon verbal stimuli. Pt reports all over body pain. Smile symmetrical, equal bilateral hand rn surgical, no arm drift, Pt able to feel touch to BLL, Pt able to lift bilateral legs off stretcher. VSS.
[2022-09-24 20:17] LABS: Acetaminophen LAB < 17 mcg/mL (<30)
[2022-09-24 21:16] LABS: Amphetamine Screen Urine Not Detected (Not Detect); Barbiturates, Urine Not Detected (Not Detect); Benzodiazepines Screen Urine Not Detected (Not Detect); Cannabinoid Screen Urine Not Detected (Not Detect); Cocaine Screen Urine Not Detected (Not Detect); Fentanyl, urine Not Detected (Not Detect); Opiate Screen Urine Not Detected (Not Detect); Phencyclidine Screen Urine Not Detected (Not Detect)
--- NOTE | 2022-09-24 22:12 | P.HPHOSP_ITS ---
History of Present Illness Date of Service: 09/24/22 Chief Complaint: Altered mentation This is a 52-year-old male with pertinent history of mood disorder, opioid use disorder on Suboxone, essential hypertension, seizure disorder who was brought to the emergency department for evaluation of altered mentation. Patient states he was feeling unwell and and hence he called the . The noticed that the patient was lying in a carwith his eyes rolled up and not responding to questions. Patient was unresponsive when he was brought to the ER but regained consciousness subsequently. The patient does not remember what happened. Does have a history of seizure disorder and history of TIA as per the and p atient. No tongue bite or urinary or bowel incontinence. Patient denies fever, chills, chest discomfort, palpitations, shortness of breath, abdominal pain, changes in urinary or bowel habits. No signs of trauma. In the emergency department, CT head with age indeterminate bilateral cerebellar lacunar infarcts. Review of Systems Constitutional: Constitutional: Reports no additional constitutional complaints Cardiovascular: Cardiovascular: Reports no additional cardiovascular complaints Respiratory: Respiratory: Reports no additional respiratory complaints Gastrointestinal: Gastrointestinal: Reports no additional gastrointestinal complaints Genitourinary: Genitourinary: Reports no additional male genitourinary complaints [facility] Medical History Anxiety Benign essential hypertension Degenerative joint disease of right ankle Diverticulosis large intestine w/o perforation or abscess w/o bleeding GERD (gastroesophageal reflux disease) GERD without esophagitis Glaucoma Hemorrhoids High BMI History of headache HTN (hypertension) Hx of substance abuse Insomnia Mild recurrent major depression Morbid obesity due to excess calories Morbid obesity with BMI of 45.0-49.9, adult Multiple fractures Normocytic anemia Opioid dependence on agonist therapy Renal calculi Sleep apnea Unable to bear weight Venous stasis Family History Mother No problems noted. Father No problems noted. Surgical History H/O gastric bypass H/O hand surgery History of cholecystectomy Hx of colonoscopy Hx of esophagogastroduodenoscopy Status post open reduction and internal fixation (ORIF) of fracture Social History Household Members: Significant Other Housing: Apartment Alcohol intake: never Patient Tobacco Use Status: Never used Tobacco Smoked in Last 30 Days: No e-Cigarette/Vaping Use: Never Used Second Hand Smoke Exposure: No Use of substances other than those prescribed or required for medical reasons: No Advance Directives: No Advance Directives Information Provided: No Nutrition Risks: No Nutritional Risk service: No Current occupational status: disabled Cognitive needs: Yes (cane) Hearing needs: No Vision needs: Yes (glasses) Meds Allergies Allergy/AdvReac Type Severity Reaction Status Date / Time hydromorphone [From DILAUDID] Allergy Severe STOPPED Verified 09/12/22 10:17 BREATHING aripiprazole [Abilify] AdvReac Intermediate anxious Verified 09/12/22 10:17 Active Medications: Current Medications Pharmacy Consult (Consult Rx Perform Med Rec) 1 each MISCELLANE ONCE PRN PRN Reason: Consult order Home Medications Medication Instructions Recorded Confirmed Last Taken Type clonazepam 2 mg tablet 2 mg PO BEDTIME 01/23/20 09/24/22 01/30/20 History 2 mg buprenorphine 2 mg-naloxone 0.5 mg 2 mg sublingual DAILY 09/24/22 09/24/22 Unknown History sublingual film (Suboxone) latanoprost 0.005 % eye drops 1 drp BEDTIME 09/24/22 09/24/22 Unknown History multivitamin 1 tab PO DAILY 09/24/22 09/24/22 Unknown History omeprazole 20 mg capsule,delayed 20 mg PO DAILY 09/24/22 09/24/22 Unknown History release Physical Exam Vital Signs and Narrative: Vital Signs: Last Vital Signs Temp 97.7 F 09/24/22 19:32 Pulse 73 09/24/22 19:32 Resp 20 09/24/22 19:32 BP 113/71 09/24/22 19:32 Pulse Ox 98 09/24/22 19:32 O2 Del Method Room Air 09/24/22 19:32 BMI result Body Mass Index 41.6 Middle-aged male lying in bed in no distress Neck supple, no JVD Regular rate and rhythm, S1-S2 heard Regular breath sounds bilaterally, no wheezing or crackles appreciated Abdomen soft nontender, no guarding, no rigidity Patient is awake, alert and oriented to self, place, time and person ; Tongue and uvula midline, strength equal in all extremities, no nystagmus, no facial droop Psych: Normal mood No pedal edema Results Labs 09/24/22 17:51 09/24/22 17:51 Labs: Laboratory Results - last 24 hr 09/24/22 09/24/22 09/24/22 17:50 17:50 17:50 MCV MCH MCHC RDW Plt Count MPV Immature Gran % (Auto) Neut % (Auto) Lymph % (Auto) [place] % (Auto) Eos % (Auto) Baso % (Auto) Lymph # (Auto) [place] # (Auto) Eos # (Auto) Baso # (Auto) Abs Immat Gran (auto) Absolute Neuts (auto) Absolute Nucleated RBC Nucleated RBC % (auto) D-Dimer High Sensitivty Anion Gap Estim Creat Clear Calc Estimated GFR Random Glucose Lactic Acid 1.3 Calcium Magnesium Total Bilirubin AST ALT Alkaline Phosphatase Total Creatine Kinase Troponin I High Sens B-Natriuretic Peptide 26 Total Protein Albumin Urine Color Urine Appearance Urine pH Ur Specific [place] Urine Protein Urine Glucose (UA) Urine Ketones Urine Blood Urine Nitrite Ur Leukocyte Esterase Salicylates Urine Opiates Screen Urine Fentanyl Screen Acetaminophen Ur Barbiturates Screen Ur Phencyclidine Scrn Ur Amphetamines Screen U Benzodiazepines Scrn Urine Cocaine Screen U Marijuana (THC) Screen Ethyl Alcohol COVID-19 (MIRANDA) Negative COVID-19 Clin Com See Note 09/24/22 09/24/22 09/24/22 17:51 17:51 17:51 MCV 83.4 MCH 26.1 L MCHC 31.3 RDW 14.9 Plt Count 185 MPV 11.5 Immature Gran % (Auto) 0.3 Neut % (Auto) 65.7 Lymph % (Auto) 19.5 L [place] % (Auto) 10.1 Eos % (Auto) 3.7 Baso % (Auto) 0.7 Lymph # (Auto) 1.5 [place] # (Auto) 0.8 Eos # (Auto) 0.3 Baso # (Auto) 0.1 Abs Immat Gran (auto) 0.02 Absolute Neuts (auto) 4.9 Absolute Nucleated RBC 0.000 Nucleated RBC % (auto) 0.0 D-Dimer High Sensitivty 271 Anion Gap 13 Estim Creat Clear Calc 101.4 Estimated GFR > 60 Random Glucose 74 Lactic Acid Calcium 8.8 Magnesium 2.3 Total Bilirubin 0.8 AST 28 ALT 17 Alkaline Phosphatase 152 H Total Creatine Kinase 148 Troponin I High Sens B-Natriuretic Peptide Total Protein 6.8 Albumin 3.9 Urine Color Urine Appearance Urine pH Ur Specific [place] Urine Protein Urine Glucose (UA) Urine Ketones Urine Blood Urine Nitrite Ur Leukocyte Esterase Salicylates < 5.0 L Urine Opiates Screen Urine Fentanyl Screen Acetaminophen < 17 Ur Barbiturates Screen Ur Phencyclidine Scrn Ur Amphetamines Screen U Benzodiazepines Scrn Urine Cocaine Screen U Marijuana (THC) Screen Ethyl Alcohol < 10 COVID-19 (MIRANDA) COVID-19 Clin Com 09/24/22 09/24/22 09/24/22 17:51 18:44 18:44 MCV MCH MCHC RDW Plt Count MPV Immature Gran % (Auto) Neut % (Auto) Lymph % (Auto) [place] % (Auto) Eos % (Auto) Baso % (Auto) Lymph # (Auto) [place] # (Auto) Eos # (Auto) Baso # (Auto) Abs Immat Gran (auto) Absolute Neuts (auto) Absolute Nucleated RBC Nucleated RBC % (auto) D-Dimer High Sensitivty Anion Gap Estim Creat Clear Calc Estimated GFR Random Glucose Lactic Acid Calcium Magnesium Total Bilirubin AST ALT Alkaline Phosphatase Total Creatine Kinase Troponin I High Sens < 2.7 B-Natriuretic Peptide Total Protein Albumin Urine Color Yellow Urine Appearance Clear Urine pH 8.0 Ur Specific [place] 1.010 Urine Protein Negative Urine Glucose (UA) Negative Urine Ketones Negative Urine Blood Negative Urine Nitrite Negative Ur Leukocyte Esterase Negative Salicylates Urine Opiates Screen Not Detected Urine Fentanyl Screen Not Detected Acetaminophen Ur Barbiturates Screen Not Detected Ur Phencyclidine Scrn Not Detected Ur Amphetamines Screen Not Detected U Benzodiazepines Scrn Not Detected Urine Cocaine Screen Not Detected U Marijuana (THC) Screen Not Detected Ethyl Alcohol COVID-19 (MIRANDA) COVID-19 Clin Com Imaging Radiologist's Impressions: Impressions Chest X-Ray 09/24/22 17:30 IMPRESSION: Hypoexpanded with basilar markings more likely due to atelectasis. Head CT 09/24/22 18:10 IMPRESSION: 1. Age-indeterminate bilateral cerebellar lacunar infarcts. 2. Additional incidental findings as detailed above. Chest CTA 09/24/22 19:45 IMPRESSION: * Respiratory motion limits evaluation for subsegmental pulmonary emboli. No central, lobar or segmental pulmonary embolism. * Several small solid pulmonary nodules measuring up to 4 mm. Assuming patient has no history of malignancy, recommend follow-up per Fleischner Society recommendations. According to the UPDATED 2017 Fleischner Society recommendations, the advised followup imaging for solid nodules < 6 mm is: LOW RISK PATIENT: No routine follow up. HIGH RISK PATIENT: Optional CT at 12 months. * Coronary artery calcification is present. Recommend collection with cardiac risk factors. Assessment and Plan (1) Altered mental status: Status: Acute Plan This is a 52-year-old male with pertinent history of mood disorder, opioid use disorder on Suboxone, essential hypertension, seizure disorder who was brought to the emergency department for evaluation of altered mentation. #. Acute encephalopathy, unclear etiology. CT head with age indeterminate bilateral cerebellar lacunar infarcts. Will obtain MRI to rule out acute CVA. Obtaining ammonia and TSH. Electrolyte within normal limits. UDS negative. Consulting neurology, appreciate assistance. Also ordered EEG #. opioid use disorder: On Suboxone #. mood disorder. Continue home mood stabilizers #. essential hypertension. On lisinopril DVT prophylaxis: Lovenox Full code cardiac diet Time Spent With Patient Time: Total time managing care of this patient today ____ minutes. Quality Stroke Does the patient have a stroke diagnosis?: No VTE Prior VTE?: No VTE Risk Level:: Medical - moderate - high VTE Device Contraindication: Treatment Not Indicated VTE Drug Contraindication: N/A - Med Ordered
--- NOTE | 2022-09-24 22:12 | PHA.MEDREC ---
Pharmacy Consult ? Medication Reconciliation Pharmacy has completed the medication reconciliation. Used crime scene specialist, spoke to patients mother. They did mention patient has not taken any medications today.
[2022-09-24 22:43] VITALS: RESP 18
[2022-09-24] MEDS: Morphine Sulfate 4 MG/ML CARTRIDGE IVPUSH (22:43)
[2022-09-24] MEDS: Enoxaparin Sodium 40 MG/0.4 ML SYRINGE SUBCUT (22:44)
[2022-09-24 22:47] LABS: Ammonia 35 umol/L (13-55)
[2022-09-24 23:10] VITALS: BP 139/68; PULSE 79; RESP 14; O2SAT 97
--- NOTE | 2022-09-24 23:27 | PC.NURSE ---
Pt given a sandwich and PO fluids. Pt tolerated well.
[2022-09-24 23:48] LABS: Thyroid Stimulating Hormone 1.71 uIU/mL (0.32-4.0)
--- NOTE | 2022-09-24 23:53 | PC.NURSE ---
RN to RN report given to Andrea, Pt will be transported to room 469, Pt aware of plan, at bedside.
[2022-09-25] VITALS: BP 126/58; PULSE 77; RESP 18; TEMP 36.3; O2SAT 96
--- NOTE | 2022-09-25 | EEG_ITS ---
This is a 16-channel EEG with an EKG lead. The patient is reported awake during the tracing. Background EEG rhythm is low amplitude fast with no obvious asymmetry or paroxysmal tendency. Photic stimulation does not produce any significant abnormality. Hyperventilation is not performed. Cardiac lead does not reveal any significant abnormality. No sharp wave spikes or paroxysmal tendency noted. IMPRESSION: Unremarkable EEG. MD AYDEN Lane/GOLDIE / [id number]
[2022-09-25] MEDS: Acetaminophen 325 MG TABLET 650 MG PO ×2 (01:34→15:23)
[2022-09-25] MEDS: clonazePAM 1 MG TABLET 2 MG PO (01:34)
[2022-09-25] MEDS: Gabapentin 300 MG CAPSULE 600 MG PO (01:34)
[2022-09-25] MEDS: 0.9 % Sodium Chloride Flush 3 ML SYRINGE IVFLUSH ×2 (01:35→09:37)
[2022-09-25] MEDS: Amitriptyline HCl 50 MG TABLET PO (01:35)
[2022-09-25 03:06] VITALS: BP 123/58; PULSE 75; RESP 18; TEMP 36.1; O2SAT 96
[2022-09-25 06:50] LABS: MANUAL DIFF FLAG NO
[2022-09-25 06:54] LABS: Basophils Percent Auto 0.7 % (0-2); Eosinophils Absolute Auto 0.3 X10*3/uL (0.0-0.4); Eosinophils Percent Auto 5.2 % (0-4); Hematocrit 35.2 % (42.0-52.0); Imm Gran Abs Auto 0.02 X10*3/uL (0.00-0.03); Imm Gran Pct Auto 0.4 % (0.0-0.4); Lymphocytes Percent Auto 36.5 % (20-40); Mean Corpuscular HGB Conc 31.3 g/dl (31.0-36.0); Mean Corpuscular Volume 83.2 fL (80.0-98.0); Mean Platelet Volume 11.5 fL (9.4-12.4); Monocytes Absolute Auto 0.5 X10*3/uL (0.1-1.2); Monocytes Percent Auto 9.4 % (2-11); Neutrophils Absolute Auto 2.6 x10*3/uL (2.0-8.3); Neutrophils Percent Auto 47.8 % (45-73); Platelet Count 178 X10*3/uL (160-400); Red Blood Count 4.23 X10*6/uL (4.60-5.80); White Blood Count 5.3 X10*3/uL (4.8-10.8)
[2022-09-25 07:14] LABS: Anion Gap 11 (12-20); Blood Urea Nitrogen 8 mg/dL (9-16); Calcium 8.5 mg/dL (8.4-10.2); Carbon Dioxide 27 mmol/L (22-29); Chloride 109 mmol/L (96-108); Creatinine Clr Calc Pharmacy 124.4; Estimated Glomerular Filt Rate > 60; Glucose Random 81 mg/dL (60-115); Potassium 4.5 mmol/L (3.3-5.1); Sodium 142 mmol/L (135-145)
[2022-09-25 07:26] VITALS: BP 145/65; PULSE 77; RESP 20; TEMP 36.3; O2SAT 98
[2022-09-25] MEDS: Gabapentin 600 MG TABLET PO ×2 (08:21→15:23)
[2022-09-25] MEDS: Multivitamin TABLET 1 TAB PO (08:21)
[2022-09-25] MEDS: Omeprazole 20 MG CAPSULE.DR PO (08:21)
[2022-09-25] MEDS: Buprenorphine/Naloxone 2/0.5mg FILM 1 FILM SUBLINGUAL (08:21)
--- NOTE | 2022-09-25 11:00 | HO.PM.IMPN ---
Subjective Subjective Date of Service: 09/25/22 Interval History: f/u on confusion of some sort he is lucid this morning Physical Exam Vital Signs: Vital Signs: Last Vital Signs Temp 97.4 F 09/25/22 07:26 Pulse 77 09/25/22 07:26 Resp 20 09/25/22 07:26 BP 145/65 H 09/25/22 07:26 Pulse Ox 98 09/25/22 07:26 O2 Del Method Room Air 09/25/22 07:26 BMI result Body Mass Index 41.6 Const: Other: General: AO X 3, no acute distress Resp: CTA bilateral CVS: S1,S2,RRR GI: +BS, NT, no distention Skin: No rash Neuro: motor grossly intact Psych: appropriate affect Objective Data Active Medications Acetaminophen (Acetaminophen 325 Mg Tablet) 650 mg PO Q6H PRN PRN Reason: Pain, Mild (Pain Scale 1-3) Last Admin: 09/25/22 01:34 Dose: 650 mg Documented By: KAN Amitriptyline HCl (Amitriptyline Hcl 50 Mg Tablet) 50 mg PO BEDTIME [facility] Buprenorphine/Naloxone (Buprenorphine/Naloxone 2/0.5mg Film) 1 film SUBLINGUAL DAILY [facility] Last Admin: 09/25/22 08:21 Dose: 1 film Documented By: KAELA Clonazepam (Clonazepam 1 Mg Tablet) 2 mg PO BEDTIME [facility] Enoxaparin Sodium (Enoxaparin Sodium 40 Mg/0.4 Ml Syringe) 40 mg SUBCUT Q24H [facility] Last Admin: 09/24/22 22:44 Dose: 40 mg Documented By: RAFIQ Gabapentin (Gabapentin 600 Mg Tablet) 600 mg PO TID [facility] Last Admin: 09/25/22 08:21 Dose: 600 mg Documented By: KAELA Latanoprost (Latanoprost 0.005 % Ophth Gisel 2.5 Ml Drops) 1 drop EYE-BOTH BEDTIME [facility] Lisinopril (Lisinopril 10 Mg Tablet) 10 mg PO DAILY [facility]; Protocol Last Admin: 09/25/22 08:45 Dose: Not Given Documented By: KAELA Non-Admin Reason: Patient Refused Meclizine HCl (Meclizine Hcl 25 Mg Tablet) 25 mg PO DAILY PRN PRN Reason: Vertigo Melatonin (Melatonin 3 Mg Tablet) 6 mg PO BEDTIME PRN PRN Reason: Insomnia Multivitamins/Vitamin C (Multivitamin Tablet) 1 tab PO DAILY [facility] Last Admin: 09/25/22 08:21 Dose: 1 tab Documented By: KAELA Omeprazole (Omeprazole 20 Mg Capsule.Dr) 20 mg PO DAILY [facility] Last Admin: 09/25/22 08:21 Dose: 20 mg Documented By: KAELA Ondansetron HCl (Ondansetron Hcl 4 Mg/2 Ml Vial) 4 mg IVPUSH Q8H PRN PRN Reason: Nausea and Vomiting Pharmacy Consult (Consult Rx Perform Med Rec) 1 each MISCELLANE ONCE PRN PRN Reason: Consult order Sodium Chloride (0.9 % Sodium Chloride Flush 3 Ml Syringe) 3 ml IVFLUSH QSHIFT [facility] Last Admin: 09/25/22 09:37 Dose: 3 ml Documented By: KAELA Labs 09/25/22 06:05 09/25/22 06:05 Labs: Laboratory Results - last 24 hr 09/24/22 09/24/22 09/24/22 17:50 17:50 17:50 MCV MCH MCHC RDW Plt Count MPV Immature Gran % (Auto) Neut % (Auto) Lymph % (Auto) [place] % (Auto) Eos % (Auto) Baso % (Auto) Lymph # (Auto) [place] # (Auto) Eos # (Auto) Baso # (Auto) Abs Immat Gran (auto) Absolute Neuts (auto) Absolute Nucleated RBC Nucleated RBC % (auto) D-Dimer High Sensitivty Anion Gap Estim Creat Clear Calc Estimated GFR Random Glucose Lactic Acid 1.3 Calcium Magnesium Total Bilirubin AST ALT Alkaline Phosphatase Ammonia Total Creatine Kinase Troponin I High Sens B-Natriuretic Peptide 26 Total Protein Albumin TSH Urine Color Urine Appearance Urine pH Ur Specific [place] Urine Protein Urine Glucose (UA) Urine Ketones Urine Blood Urine Nitrite Ur Leukocyte Esterase Salicylates Urine Opiates Screen Urine Fentanyl Screen Acetaminophen Ur Barbiturates Screen Ur Phencyclidine Scrn Ur Amphetamines Screen U Benzodiazepines Scrn Urine Cocaine Screen U Marijuana (THC) Screen Ethyl Alcohol COVID-19 ([facility]ANDA) Negative COVID-19 Clin Com See Note 09/24/22 09/24/22 09/24/22 17:51 17:51 17:51 MCV 83.4 MCH 26.1 L MCHC 31.3 RDW 14.9 Plt Count 185 MPV 11.5 Immature Gran % (Auto) 0.3 Neut % (Auto) 65.7 Lymph % (Auto) 19.5 L [place] % (Auto) 10.1 Eos % (Auto) 3.7 Baso % (Auto) 0.7 Lymph # (Auto) 1.5 [place] # (Auto) 0.8 Eos # (Auto) 0.3 Baso # (Auto) 0.1 Abs Immat Gran (auto) 0.02 Absolute Neuts (auto) 4.9 Absolute Nucleated RBC 0.000 Nucleated RBC % (auto) 0.0 D-Dimer High Sensitivty 271 Anion Gap 13 Estim Creat Clear Calc 101.4 Estimated GFR > 60 Random Glucose 74 Lactic Acid Calcium 8.8 Magnesium 2.3 Total Bilirubin 0.8 AST 28 ALT 17 Alkaline Phosphatase 152 H Ammonia Total Creatine Kinase 148 Troponin I High Sens B-Natriuretic Peptide Total Protein 6.8 Albumin 3.9 TSH 1.71 Urine Color Urine Appearance Urine pH Ur Specific [place] Urine Protein Urine Glucose (UA) Urine Ketones Urine Blood Urine Nitrite Ur Leukocyte Esterase Salicylates < 5.0 L Urine Opiates Screen Urine Fentanyl Screen Acetaminophen < 17 Ur Barbiturates Screen Ur Phencyclidine Scrn Ur Amphetamines Screen U Benzodiazepines Scrn Urine Cocaine Screen U Marijuana (THC) Screen Ethyl Alcohol < 10 COVID-19 ([facility]DA) COVID-19 Clin Com 09/24/22 09/24/22 09/24/22 17:51 18:44 18:44 MCV MCH MCHC RDW Plt Count MPV Immature Gran % (Auto) Neut % (Auto) Lymph % (Auto) [place] % (Auto) Eos % (Auto) Baso % (Auto) Lymph # (Auto) [place] # (Auto) Eos # (Auto) Baso # (Auto) Abs Immat Gran (auto) Absolute Neuts (auto) Absolute Nucleated RBC Nucleated RBC % (auto) D-Dimer High Sensitivty Anion Gap Estim Creat Clear Calc Estimated GFR Random Glucose Lactic Acid Calcium Magnesium Total Bilirubin AST ALT Alkaline Phosphatase Ammonia Total Creatine Kinase Troponin I High Sens < 2.7 B-Natriuretic Peptide Total Protein Albumin TSH Urine Color Yellow Urine Appearance Clear Urine pH 8.0 Ur Specific [place] 1.010 Urine Protein Negative Urine Glucose (UA) Negative Urine Ketones Negative Urine Blood Negative Urine Nitrite Negative Ur Leukocyte Esterase Negative Salicylates Urine Opiates Screen Not Detected Urine Fentanyl Screen Not Detected Acetaminophen Ur Barbiturates Screen Not Detected Ur Phencyclidine Scrn Not Detected Ur Amphetamines Screen Not Detected U Benzodiazepines Scrn Not Detected Urine Cocaine Screen Not Detected U Marijuana (THC) Screen Not Detected Ethyl Alcohol COVID-19 (MIRANDA) COVID-19 [email or web address] 09/24/22 09/24/22 09/25/22 22:26 22:26 06:05 MCV 83.2 MCH 26.0 L MCHC 31.3 RDW 15.0 Plt Count 178 MPV 11.5 Immature Gran % (Auto) 0.4 Neut % (Auto) 47.8 Lymph % (Auto) 36.5 [place] % (Auto) 9.4 Eos % (Auto) 5.2 H Baso % (Auto) 0.7 Lymph # (Auto) 2.0 [place] # (Auto) 0.5 Eos # (Auto) 0.3 Baso # (Auto) 0.0 Abs Immat Gran (auto) 0.02 Absolute Neuts (auto) 2.6 Absolute Nucleated RBC 0.000 Nucleated RBC % (auto) 0.0 D-Dimer High Sensitivty Anion Gap Estim Creat Clear Calc Estimated GFR Random Glucose Lactic Acid Calcium Magnesium Total Bilirubin AST ALT Alkaline Phosphatase Ammonia 35 Total Creatine Kinase Troponin I High Sens B-Natriuretic Peptide Total Protein Albumin TSH Cancelled Urine Color Urine Appearance Urine pH Ur Specific [place] Urine Protein Urine Glucose (UA) Urine Ketones Urine Blood Urine Nitrite Ur Leukocyte Esterase Salicylates Urine Opiates Screen Urine Fentanyl Screen Acetaminophen Ur Barbiturates Screen Ur Phencyclidine Scrn Ur Amphetamines Screen U Benzodiazepines Scrn Urine Cocaine Screen U Marijuana (THC) Screen Ethyl Alcohol COVID-19 ([facility]IR[facility]DA) COVID-19 [email or web address] 09/25/22 06:05 MCV MCH MCHC RDW Plt Count MPV Immature Gran % (Auto) Neut % (Auto) Lymph % (Auto) [place] % (Auto) Eos % (Auto) Baso % (Auto) Lymph # (Auto) [place] # (Auto) Eos # (Auto) Baso # (Auto) Abs Immat Gran (auto) Absolute Neuts (auto) Absolute Nucleated RBC Nucleated RBC % (auto) D-Dimer High Sensitivty Anion Gap 11 L Estim Creat Clear Calc 124.4 Estimated GFR > 60 Random Glucose 81 Lactic Acid Calcium 8.5 Magnesium Total Bilirubin AST ALT Alkaline Phosphatase Ammonia Total Creatine Kinase Troponin I High Sens B-Natriuretic Peptide Total Protein Albumin TSH Urine Color Urine Appearance Urine pH Ur Specific [place] Urine Protein Urine Glucose (UA) Urine Ketones Urine Blood Urine Nitrite Ur Leukocyte Esterase Salicylates Urine Opiates Screen Urine Fentanyl Screen Acetaminophen Ur Barbiturates Screen Ur Phencyclidine Scrn Ur Amphetamines Screen U Benzodiazepines Scrn Urine Cocaine Screen U Marijuana (THC) Screen Ethyl Alcohol COVID-19 ([facility]IR[facility]DA) COVID-19 Clin Com Assessment and Plan (1) Altered mental status: Status: Acute (2) Brain TIA: Status: Acute Plan This is a 52-year-old male with pertinent history of mood disorder, opioid use disorder on Suboxone, essential hypertension, seizure disorder who was brought to the emergency department for evaluation of altered mentation. #. Altered mental status, not necessary encephalopathy, ? TIA.? CT head with age indeterminate bilateral cerebellar lacunar infarcts.? He is no longer encephalopathy. Utox was negative. MRI and EEG requested and awaiting Neurology evaluation as well, ?#. opioid use disorder: On Suboxone ?#. mood disorder.? Continue home mood stabilizers ?#. essential hypertension.? On lisinopril obs pt, possilbe dc later today after work up Time Spent With Patient Time: Total time managing care of this patient today ____ minutes. Quality Stroke Does the patient have a stroke diagnosis?: No VTE Prior VTE?: No VTE Risk Level:: Medical - moderate - high VTE Device Contraindication: Treatment Not Indicated VTE Drug Contraindication: N/A - Med Ordered
[2022-09-25 11:35] VITALS: BP 136/78; PULSE 80; RESP 20; TEMP 36.1; O2SAT 98
--- NOTE | 2022-09-25 12:37 | P.CNNE_ITS ---
History of Present Illness Data of Consult Service Date: 09/25/22 Primary Care Provider: Kylee Farrar MD HPI Reason for consult: Change in mental status 52 years old man with underlying history of prostatic right eye, drug use and anxiety apparently was noted to be unresponsive with eyes rolled over by his . When I asked him why he was in the hospital, he stated that his sugar dropped. He denied using any drugs. He was known to have some type of seizure disorder but details were unclear. Review of Systems Review of Systems: No recent cold or flu-like illness or head trauma PMFSH Past Medical History Medical History Anxiety Benign essential hypertension Degenerative joint disease of right ankle Diverticulosis large intestine w/o perforation or abscess w/o bleeding GERD (gastroesophageal reflux disease) GERD without esophagitis Glaucoma Hemorrhoids High BMI History of headache HTN (hypertension) Hx of substance abuse Insomnia Mild recurrent major depression Morbid obesity due to excess calories Morbid obesity with BMI of 45.0-49.9, adult Multiple fractures Normocytic anemia Opioid dependence on agonist therapy Renal calculi Sleep apnea Unable to bear weight Venous stasis Family History Family History Mother No problems noted. Father No problems noted. Surgical History Surgical History H/O gastric bypass H/O hand surgery History of cholecystectomy Hx of colonoscopy Hx of esophagogastroduodenoscopy Status post open reduction and internal fixation (ORIF) of fracture Social History Social History Household Members: Significant Other Housing: Apartment Alcohol intake: never Patient Tobacco Use Status: Never used Tobacco Smoked in Last 30 Days: No e-Cigarette/Vaping Use: Never Used Second Hand Smoke Exposure: No Use of substances other than those prescribed or required for medical reasons: No Advance Directives: No Advance Directives Information Provided: No Nutrition Risks: No Nutritional Risk service: No Current occupational status: disabled Cognitive needs: Yes (cane) Hearing needs: No Vision needs: Yes (glasses) Meds Allergies Allergy/AdvReac Type Severity Reaction Status Date / Time hydromorphone [From DILAUDID] Allergy Severe STOPPED Verified 09/12/22 10:17 BREATHING aripiprazole [Abilify] AdvReac Intermediate anxious Verified 09/12/22 10:17 Active Medications: Current Medications Acetaminophen (Acetaminophen 325 Mg Tablet) 650 mg PO Q6H PRN PRN Reason: Pain, Mild (Pain Scale 1-3) Last Admin: 09/25/22 01:34 Dose: 650 mg Amitriptyline HCl (Amitriptyline Hcl 50 Mg Tablet) 50 mg PO BEDTIME [facility] Buprenorphine/Naloxone (Buprenorphine/Naloxone 2/0.5mg Film) 1 film SUBLINGUAL DAILY [facility] Last Admin: 09/25/22 08:21 Dose: 1 film Clonazepam (Clonazepam 1 Mg Tablet) 2 mg PO BEDTIME [facility] Enoxaparin Sodium (Enoxaparin Sodium 40 Mg/0.4 Ml Syringe) 40 mg SUBCUT Q24H [facility] Last Admin: 09/24/22 22:44 Dose: 40 mg Gabapentin (Gabapentin 600 Mg Tablet) 600 mg PO TID [facility] Last Admin: 09/25/22 08:21 Dose: 600 mg Latanoprost (Latanoprost 0.005 % Ophth Gisel 2.5 Ml Drops) 1 drop EYE-BOTH BEDTIME [facility] Lisinopril (Lisinopril 10 Mg Tablet) 10 mg PO DAILY [facility]; Protocol Last Admin: 09/25/22 08:45 Dose: Not Given Meclizine HCl (Meclizine Hcl 25 Mg Tablet) 25 mg PO DAILY PRN PRN Reason: Vertigo Melatonin (Melatonin 3 Mg Tablet) 6 mg PO BEDTIME PRN PRN Reason: Insomnia Multivitamins/Vitamin C (Multivitamin Tablet) 1 tab PO DAILY [facility] Last Admin: 09/25/22 08:21 Dose: 1 tab Omeprazole (Omeprazole 20 Mg Capsule.Dr) 20 mg PO DAILY [facility] Last Admin: 09/25/22 08:21 Dose: 20 mg Ondansetron HCl (Ondansetron Hcl 4 Mg/2 Ml Vial) 4 mg IVPUSH Q8H PRN PRN Reason: Nausea and Vomiting Pharmacy Consult (Consult Rx Perform Med Rec) 1 each MISCELLANE ONCE PRN PRN Reason: Consult order Sodium Chloride (0.9 % Sodium Chloride Flush 3 Ml Syringe) 3 ml IVFLUSH QSHIFT [facility] Last Admin: 09/25/22 09:37 Dose: 3 ml Home Medications Medication Instructions Recorded Confirmed Last Taken Type clonazepam 2 mg tablet 2 mg PO BEDTIME 01/23/20 09/24/22 01/30/20 History 2 mg buprenorphine 2 mg-naloxone 0.5 mg 2 mg sublingual DAILY 09/24/22 09/24/22 Unkno wn History sublingual film (Suboxone) latanoprost 0.005 % eye drops 1 drp BEDTIME 09/24/22 09/24/22 Unknown History multivitamin 1 tab PO DAILY 09/24/22 09/24/22 Unknown History omeprazole 20 mg capsule,delayed 20 mg PO DAILY 09/24/22 09/24/22 Unknown History release Physical Exam Vital Signs: Vital Signs: Last Vital Signs Temp 97.0 F 09/25/22 11:35 Pulse 80 09/25/22 11:35 Resp 20 09/25/22 11:35 BP 136/78 09/25/22 11:35 Pulse Ox 98 09/25/22 11:35 O2 Del Method Room Air 09/25/22 11:35 BMI result Body Mass Index 41.6 Neuro: Other: Alert and awake with normal spontaneity of speech fluency comprehension and affect. Into was performed with the help of an chief scientist. Right eye was prostatic. Left eye extraocular muscles were intact. Visual alarcon are full. Face otherwise was symmetrical. There was no pronator drift. Deep tendon reflexes were trace to absent. Results Labs 09/25/22 06:05 09/25/22 06:05 Labs: Short CBC 09/24/22 09/25/22 Range/Units 17:51 06:05 WBC 7.5 5.3 (4.8-10.8) X10*3/uL Hgb 11.5 L 11.0 L (14.0-18.0) g/dl Hct 36.8 L 35.2 L (42.0-52.0) % Plt Count 185 178 (160-400) X10*3/uL BMP 09/24/22 09/25/22 17:51 06:05 Sodium 141 142 Potassium 4.5 4.5 Chloride 106 109 H Carbon Dioxide 27 27 BUN 11 8 L Creatinine 1.08 0.88 Calcium 8.8 8.5 Cardiac Enzymes 09/24/22 Range/Units 17:51 Total Creatine Kinase 148 (38-174) U/L Liver Function 09/24/22 Range/Units 17:51 Total Bilirubin 0.8 (0.0-1.0) mg/dL AST 28 (5-37) U/L ALT 17 (0-40) U/L Alkaline Phosphatase 152 H (39-117) U/L Albumin 3.9 (3.5-5.0) g/dL Urine 09/24/22 Range/Units 18:44 Urine Color Yellow Urine Appearance Clear Urine pH 8.0 (5.0-9.0) Ur Specific [place] 1.010 (1.005-1.025) Urine Protein Negative (Neg-Trace) mg/dL Urine Glucose (UA) Negative (Negative) mg/dL Noncontrast MRI of brain did not reveal any acute abnormality per Assessment and Plan (1) Altered mental status: Status: Acute 52 years old man with possible seizure disorder. An EEG is recommended any should be advised to avoid driving and use of heavy machinery. Time Spent With Patient Time: Total time managing care of this patient today ____ minutes. Procedures Date of Service Date of Service: 09/25/22
--- NOTE | 2022-09-25 14:17 | MHC.CM.PN ---
JUAN JOSE 09/25/22. Pt admitted with altered mental stattus. Pt SSO, lives at home with his , has a [employer]ULATION SPECIALIST, uses a cane. D/C plan to return home when medically cleared with previous [employer] services. Pts to transport. HCP filled out today. PCP: Kylee Milian vax: x [phone]
[2022-09-25 15:11] VITALS: BP 164/90; PULSE 73; RESP 18; TEMP 36.4; O2SAT 97
--- NOTE | 2022-09-25 15:35 | PM.DS ---
DS: Providers Provider Date of Service: 09/25/22 Date of admission: 09/24/22 22:10 Primary care physician: Kylee Farrar MD Consults: 09/24/22 22:15 Consult to Neurology Routine Consulting Provider: [facility] Reason for consultation: acute encephalopathy DS: Diagnosis Discharge Diagnosis (1) Altered mental status: Status: Acute DS: Summary Hospital Course Hospital Course: Chief Complaint: Altered mentation This is a 52-year-old male with pertinent history of mood disorder, opioid use disorder on Suboxone, essential hypertension, seizure disorder who was brought to the emergency department for evaluation of altered mentation.? Patient states he was feeling unwell and and hence he called the .? The noticed that the patient was lying in a carwith his eyes rolled up and not responding to questions. Patient was unresponsive when he was brought to the ER but regained consciousness subsequently. The patient does not remember what happened.? Does have a history of seizure disorder and history of TIA as per the and patient.? No tongue bite or urinary or bowel incontinence.? Patient denies fever, chills, chest discomfort, palpitations, shortness of breath, abdominal pain, changes in urinary or bowel habits.? No signs of trauma. ? In the emergency department, CT head with age indeterminate bilateral cerebellar lacunar infarcts. Hospital course: The patient presented with transient alteration in mental status and concern for storke, or seizure, stroke work up with CT, and MRI are negative, EEG was negative for seizure. He was evaluated by Dr. Cartagena from Neurology and recommended MRI which is negative but he is recommending no driving or operating a heavy machinery. The patient has since been back to his baseline, it is possible he may have had a TIA and therefore adding a baby aspirin daily. Time Spent with Patient Time attestation: Total time managing care of this patient today ____ minutes. Discharge coordination time: Greater than 30 minutes Quality: Safe Use of Opioids Does Pt have an Active Cancer Diagnosis on the Problem List?: No Quality: Stroke Does the patient have a stroke diagnosis?: No Physical Exam Vital Signs: Vital Signs: Last Vital Signs Temp 97.5 F 09/25/22 15:11 Pulse 73 09/25/22 15:11 Resp 18 09/25/22 15:11 BP 164/90 H 09/25/22 15:11 Pulse Ox 97 09/25/22 15:11 O2 Del Method Room Air 09/25/22 15:11 BMI result Body Mass Index 41.6 DS: Data Data Completed and Pending Labs on day of discharge: Laboratory Results - last 24 hr 09/24/22 09/24/22 09/24/22 17:50 17:50 17:50 WBC RBC Hgb Hct MCV MCH MCHC RDW Plt Count MPV Immature Gran % (Auto) Neut % (Auto) Lymph % (Auto) Carter % (Auto) Eos % (Auto) Baso % (Auto) Lymph # (Auto) [place] # (Auto) Eos # (Auto) Baso # (Auto) Abs Immat Gran (auto) Absolute Neuts (auto) Absolute Nucleated RBC Nucleated RBC % (auto) D-Dimer High Sensitivty Sodium Potassium Chloride Carbon Dioxide Anion Gap BUN Creatinine Estim Creat Clear Calc Estimated GFR Random Glucose Lactic Acid 1.3 Calcium Magnesium Total Bilirubin AST ALT Alkaline Phosphatase Ammonia Total Creatine Kinase Troponin I High Sens B-Natriuretic Peptide 26 Total Protein Albumin TSH Urine Color Urine Appearance Urine pH Ur Specific [place] Urine Protein Urine Glucose (UA) Urine Ketones Urine Blood Urine Nitrite Ur Leukocyte Esterase Salicylates Urine Opiates Screen Urine Fentanyl Screen Acetaminophen Ur Barbiturates Screen Ur Phencyclidine Scrn Ur Amphetamines Screen U Benzodiazepines Scrn Urine Cocaine Screen U Marijuana (THC) Screen Ethyl Alcohol COVID-19 (MIRANDA) Negative COVID-19 Clin Com See Note 09/24/22 09/24/22 09/24/22 17:51 17:51 17:51 WBC 7.5 RBC 4.41 L Hgb 11.5 L Hct 36.8 L MCV 83.4 MCH 26.1 L MCHC 31.3 RDW 14.9 Plt Count 185 MPV 11.5 Immature Gran % (Auto) 0.3 Neut % (Auto) 65.7 Lymph % (Auto) 19.5 L Carter % (Auto) 10.1 Eos % (Auto) 3.7 Baso % (Auto) 0.7 Lymph # (Auto) 1.5 [place] # (Auto) 0.8 Eos # (Auto) 0.3 Baso # (Auto) 0.1 Abs Immat Gran (auto) 0.02 Absolute Neuts (auto) 4.9 Absolute Nucleated RBC 0.000 Nucleated RBC % (auto) 0.0 D-Dimer High Sensitivty 271 Sodium 141 Potassium 4.5 Chloride 106 Carbon Dioxide 27 Anion Gap 13 BUN 11 Creatinine 1.08 Estim Creat Clear Calc 101.4 Estimated GFR > 60 Random Glucose 74 Lactic Acid Calcium 8.8 Magnesium 2.3 Total Bilirubin 0.8 AST 28 ALT 17 Alkaline Phosphatase 152 H Ammonia Total Creatine Kinase 148 Troponin I High Sens B-Natriuretic Peptide Total Protein 6.8 Albumin 3.9 TSH 1.71 Urine Color Urine Appearance Urine pH Ur Specific [place] Urine Protein Urine Glucose (UA) Urine Ketones Urine Blood Urine Nitrite Ur Leukocyte Esterase Salicylates < 5.0 L Urine Opiates Screen Urine Fentanyl Screen Acetaminophen < 17 Ur Barbiturates Screen Ur Phencyclidine Scrn Ur Amphetamines Screen U Benzodiazepines Scrn Urine Cocaine Screen U Marijuana (THC) Screen Ethyl Alcohol < 10 COVID-19 (MIRANDA) COVID-19 Retty 09/24/22 09/24/22 09/24/22 17:51 18:44 18:44 WBC RBC Hgb Hct MCV MCH MCHC RDW Plt Count MPV Immature Gran % (Auto) Neut % (Auto) Lymph % (Auto) [place] % (Auto) Eos % (Auto) Baso % (Auto) Lymph # (Auto) [place] # (Auto) Eos # (Auto) Baso # (Auto) Abs Immat Gran (auto) Absolute Neuts (auto) Absolute Nucleated RBC Nucleated RBC % (auto) D-Dimer High Sensitivty Sodium Potassium Chloride Carbon Dioxide Anion Gap BUN Creatinine Estim Creat Clear Calc Estimated GFR Random Glucose Lactic Acid Calcium Magnesium Total Bilirubin AST ALT Alkaline Phosphatase Ammonia Total Creatine Kinase Troponin I High Sens < 2.7 B-Natriuretic Peptide Total Protein Albumin TSH Urine Color Yellow Urine Appearance Clear Urine pH 8.0 Ur Specific [place] 1.010 Urine Protein Negative Urine Glucose (UA) Negative Urine Ketones Negative Urine Blood Negative Urine Nitrite Negative Ur Leukocyte Esterase Negative Salicylates Urine Opiates Screen Not Detected Urine Fentanyl Screen Not Detected Acetaminophen Ur Barbiturates Screen Not Detected Ur Phencyclidine Scrn Not Detected Ur Amphetamines Screen Not Detected U Benzodiazepines Scrn Not Detected Urine Cocaine Screen Not Detected U Marijuana (THC) Screen Not Detected Ethyl Alcohol COVID-19 (MIRANDA) COVID-19 Retty 09/24/22 09/24/22 09/25/22 22:26 22:26 06:05 WBC 5.3 RBC 4.23 L Hgb 11.0 L Hct 35.2 L MCV 83.2 MCH 26.0 L MCHC 31.3 RDW 15.0 Plt Count 178 MPV 11.5 Immature Gran % (Auto) 0.4 Neut % (Auto) 47.8 Lymph % (Auto) 36.5 Carter % (Auto) 9.4 Eos % (Auto) 5.2 H Baso % (Auto) 0.7 Lymph # (Auto) 2.0 Carter # (Auto) 0.5 Eos # (Auto) 0.3 Baso # (Auto) 0.0 Abs Immat Gran (auto) 0.02 Absolute Neuts (auto) 2.6 Absolute Nucleated RBC 0.000 Nucleated RBC % (auto) 0.0 D-Dimer High Sensitivty Sodium Potassium Chloride Carbon Dioxide Anion Gap BUN Creatinine Estim Creat Clear Calc Estimated GFR Random Glucose Lactic Acid Calcium Magnesium Total Bilirubin AST ALT Alkaline Phosphatase Ammonia 35 Total Creatine Kinase Troponin I High Sens B-Natriuretic Peptide Total Protein Albumin TSH Cancelled Urine Color Urine Appearance Urine pH Ur Specific [place] Urine Protein Urine Glucose (UA) Urine Ketones Urine Blood Urine Nitrite Ur Leukocyte Esterase Salicylates Urine Opiates Screen Urine Fentanyl Screen Acetaminophen Ur Barbiturates Screen Ur Phencyclidine Scrn Ur Amphetamines Screen U Benzodiazepines Scrn Urine Cocaine Screen U Marijuana (THC) Screen Ethyl Alcohol COVID-19 (MIRANDA) COVID-19 Clin Com 09/25/22 06:05 WBC RBC Hgb Hct MCV MCH MCHC RDW Plt Count MPV Immature Gran % (Auto) Neut % (Auto) Lymph % (Auto) [place] % (Auto) Eos % (Auto) Baso % (Auto) Lymph # (Auto) [place] # (Auto) Eos # (Auto) Baso # (Auto) Abs Immat Gran (auto) Absolute Neuts (auto) Absolute Nucleated RBC Nucleated RBC % (auto) D-Dimer High Sensitivty Sodium 142 Potassium 4.5 Chloride 109 H Carbon Dioxide 27 Anion Gap 11 L BUN 8 L Creatinine 0.88 Estim Creat Clear Calc 124.4 Estimated GFR > 60 Random Glucose 81 Lactic Acid Calcium 8.5 Magnesium Total Bilirubin AST ALT Alkaline Phosphatase Ammonia Total Creatine Kinase Troponin I High Sens B-Natriuretic Peptide Total Protein Albumin TSH Urine Color Urine Appearance Urine pH Ur Specific [place] Urine Protein Urine Glucose (UA) Urine Ketones Urine Blood Urine Nitrite Ur Leukocyte Esterase Salicylates Urine Opiates Screen Urine Fentanyl Screen Acetaminophen Ur Barbiturates Screen Ur Phencyclidine Scrn Ur Amphetamines Screen U Benzodiazepines Scrn Urine Cocaine Screen U Marijuana (THC) Screen Ethyl Alcohol COVID-19 (MIRANDA) COVID-19 Clin Com Discharge Plan Discharge Anticipated Discharge Date/Time: 09/25/22 15:02 Patient Disposition: Home, Self-Care Discharge Diagnosis: Transient altered in mental status Referrals: Regi Cartagena MD [Physician] - 2 Weeks (Call for appointment) Kylee Marshall MD [Primary Care Provider] - 1 Week Discharge Medications: New aspirin 81 mg capsule 81 mg PO DAILY Qty: 30 0RF Continued (DME) Shower Chair Misc See Rx Instructions .ROUTE .MEDSUPPLY Qty: 1 0RF Rx Instructions: As directed (DME) shower mat See Rx Instructions .Route .MEDSUPPLY Qty: 1 0RF Rx Instructions: As directed (DME) toilet seat elevator with handles See Rx Instructions .Route .MEDSUPPLY Qty: 1 0RF Rx Instructions: As directed (DME) hand held shower head See Rx Instructions .Route .MEDSUPPLY Qty: 1 0RF Rx Instructions: As directed (DME) hand rail for shower See Rx Instructions .Route .MEDSUPPLY Qty: 1 0RF Rx Instructions: As directed amitriptyline 50 mg tablet 50 mg PO BEDTIME 90 Days Qty: 90 3RF lisinopril 10 mg tablet 10 mg PO DAILY 90 Days Qty: 90 3RF meclizine 25 mg tablet 25 mg PO DAILY PRN (Reason: Vertigo) 90 Days Qty: 90 1RF gabapentin 600 mg tablet 600 mg PO TID 30 Days Qty: 90 1RF clonazepam 2 mg Tablet 2 mg PO BEDTIME buprenorphine-naloxone [Suboxone] 2-0.5 mg film 2 mg sublingual DAILY multivitamin Tablet 1 tab PO DAILY latanoprost 0.005 % drops 1 drp BEDTIME omeprazole 20 mg Capsule,Delayed Release(Dr/Ec) 20 mg PO DAILY Discharge Orders: Discharge Order (Routine); Ordered 09/25/22 Ordered By: Amadou Steel Diet: Advance to usual diet Activity on Discharge: As tolerated Stand Alone Forms: Patient Portal Discharge page Care Plan Goals: Full recovery from altered mental status Health Concerns: Transient altered mental status Plan of Treatment: Continue taking your medication as usual, follow up with her primary care physician within a week, call for appointment. Do not drive or use heavy machinery, follow up with Dr. Cartagena's office to be clear to drive take one baby aspirin daily Assessment: as above Patient Instructions: Transient Ischemic Attack (ED), Altered Mental Status (ED)
--- NOTE | 2022-09-25 16:12 | MHC.CM.PN ---
Pt medically cleared for D/C home today, pts to transport home.
== END 2022-09-25 16:16 | disposition home or self-care (01) ==
LOC: HO.ED 21:52 → HO.EDOVER 22:15 → HO.IMC 23:35
PROVIDERS: Physician Assistant; Admitting Provider Student in an Organized Health Care Education/Training Program; Emergency Provider Student in an Organized Health Care Education/Training Program; PCP Internal Medicine; Visit Provider Internal Medicine
DX: R41.82 Altered mental status, unspecified (principal); R91.8 Other nonspecific abnormal finding of lung field; Z20.822 Contact with and (suspected) exposure to COVID-19; F11.20 Opioid dependence, uncomplicated; I10 Essential (primary) hypertension; E66.9 Obesity, unspecified; Z68.41 Body mass index [BMI] 40.0-44.9, adult; Z86.73 Personal history of transient ischemic attack (TIA), and cerebral infarction without residual deficits; Z79.899 Other long term (current) drug therapy
CPT/HCPCS: 36415; 70450; 70551; 71045; 71275; 80048; 80053; 80143; 80179; 80307; 81003; 82140; 82550; 83605; 83735; 83880; 84443; 84484; 85025; 85379; 87040; 87635; 93005; 95816; 96361; 96372; 96374; 99221; 99222; 99285; J1650; J2270; Q9967

== ENCOUNTER 2022-09-30 09:14 | Outpatient (REF) | payer OTHER, SELFPAY ==
[2022-09-30 09:28] LABS: MANUAL DIFF FLAG NO
[2022-09-30 10:46] LABS: Basophils Absolute Auto 0.1 X10*3/uL (0.0-0.2); Basophils Percent Auto 1.2 % (0-2); Eosinophils Absolute Auto 0.5 X10*3/uL (0.0-0.4); Hematocrit 35.4 % (42.0-52.0); Hemoglobin 10.9 g/dl (14.0-18.0); Imm Gran Abs Auto 0.01 X10*3/uL (0.00-0.03); Imm Gran Pct Auto 0.2 % (0.0-0.4); Lymphocytes Absolute Auto 2.1 X10*3/uL (1.2-4.9); Lymphocytes Percent Auto 41.2 % (20-40); Mean Corpuscular HGB Conc 30.8 g/dl (31.0-36.0); Mean Corpuscular Hemoglobin 25.5 pg (27.0-33.0); Mean Corpuscular Volume 82.7 fL (80.0-98.0); Mean Platelet Volume 11.1 fL (9.4-12.4); Monocytes Absolute Auto 0.5 X10*3/uL (0.1-1.2); Monocytes Percent Auto 9.8 % (2-11); Neutrophils Percent Auto 38.6 % (45-73); Platelet Count 178 X10*3/uL (160-400); Red Blood Count 4.28 X10*6/uL (4.60-5.80); Red Cell Distribution Width 15.3 % (11.0-16.0); White Blood Count 5.1 X10*3/uL (4.8-10.8)
[2022-09-30 10:57] LABS: Estimated Average Glucose 111 mg/dL; Hemoglobin A1c % 5.5 %
[2022-09-30 11:40] LABS: Alanine Aminotransferase 21 U/L (0-40); Albumin Level 3.7 g/dL (3.5-5.0); Alkaline Phosphatase 135 U/L (39-117); Anion Gap 12 (12-20); Aspartate Amino Transferase 30 U/L (5-37); Bilirubin Total 0.6 mg/dL (0.0-1.0); Blood Urea Nitrogen 8 mg/dL (9-16); Calcium 8.6 mg/dL (8.4-10.2); Carbon Dioxide 29 mmol/L (22-29); Chloride 107 mmol/L (96-108); Cholesterol 157 mg/dL; Estimated Glomerular Filt Rate > 60; Glucose Fasting 86 mg/dL (60-99); HDL Cholesterol 54 mg/dL; LDL Cholesterol Calculated 93 mg/dl; Potassium 4.6 mmol/L (3.3-5.1); Sodium 143 mmol/L (135-145); Total Protein 6.5 g/dL (6.5-8.0); Triglycerides 51 mg/dL
[2022-09-30 11:55] LABS: TSH reflex Free T4 2.35 uIU/mL (0.32-4.0)
== END 2022-09-30 09:15 | disposition home or self-care (01) ==
LOC: HO.LAB 09:14
PROVIDERS: PCP Internal Medicine; Visit Provider Nurse Practitioner Family
DX: R56.9 Unspecified convulsions (principal); Z13.29 Encounter for screening for other suspected endocrine disorder; Z13.0 Encounter for screening for diseases of the blood and blood-forming organs and certain disorders involving the immune mechanism; Z13.220 Encounter for screening for lipoid disorders; Z13.1 Encounter for screening for diabetes mellitus
CPT/HCPCS: 36415; 80053; 80061; 83036; 84443; 85025

== ENCOUNTER 2022-11-26 12:37 | Emergency (ER) | payer OTHER, SELFPAY ==
--- NOTE | ~2022-11-26 | XR_ITS ---
EXAMINATION: XR FOOT, RIGHT XR ANKLE, RIGHT CLINICAL INFORMATION: Pain and swelling COMPARISON: None available. TECHNIQUE: 3 views of the right ankle 3 views of the right foot FINDINGS: Status post remote plate and screw fixation of the distal fibula. Fully threaded screw along the tibiofibular syndesmosis. Orthopedic hardware appears grossly intact with ghost tracks identified. Chronic fracture deformity of the distal tibia and fibula. No acute visible fracture or dislocation. Multi joint arthritic changes. Plantar calcaneal heel spur. Spurring the dorsal midfoot. Heterotopic ossification along the anterior ankle joint space. Soft tissue swelling about the ankle. XR/XR foot RT min 3V IMPRESSION: 1. Status post remote plate and screw fixation of the distal fibula. Fully threaded screw along the tibiofibular syndesmosis. Orthopedic hardware appears grossly intact with ghost tracks identified. 2. Chronic healed fracture deformity of the distal tibia and fibula. 3. No acute visible fracture or dislocation. 4. Multi joint arthritic changes. 5. Soft tissue swelling about the ankle. 6. Plantar calcaneal heel spur. Spurring the dorsal midfoot.
--- NOTE | ~2022-11-26 | US_ITS ---
EXAMINATION: US VENOUS ULTRASOUND WITH DOPPLER LOWER EXTREMITY, RIGHT CLINICAL INFORMATION: Lower extremity swelling. COMPARISON: None available. TECHNIQUE: Ultrasound of the deep veins is performed from the hip to the calf with compression sonography and color and pulse Doppler assessment. Spectral analysis with color-flow imaging is performed. FINDINGS: There is normal venous compression and respiratory variation and augmented flow. The visualized common femoral vein, superficial femoral vein, profunda femoral vein, popliteal vein, and the trifurcation region shows no evidence of deep venous thrombosis. No right popliteal cyst. Mild subcutaneous edema in the right calf. US/US venous duplex LE RT IMPRESSION: 1. No evidence for deep venous thrombosis in the visualized veins of the right lower extremity. 2. Mild subcutaneous edema in the right calf.
--- NOTE | ~2022-11-26 | XR_ITS ---
EXAMINATION: XR FOOT, RIGHT XR ANKLE, RIGHT CLINICAL INFORMATION: Pain and swelling COMPARISON: None available. TECHNIQUE: 3 views of the right ankle 3 views of the right foot FINDINGS: Status post remote plate and screw fixation of the distal fibula. Fully threaded screw along the tibiofibular syndesmosis. Orthopedic hardware appears grossly intact with ghost tracks identified. Chronic fracture deformity of the distal tibia and fibula. No acute visible fracture or dislocation. Multi joint arthritic changes. Plantar calcaneal heel spur. Spurring the dorsal midfoot. Heterotopic ossification along the anterior ankle joint space. Soft tissue swelling about the ankle. XR/XR ankle RT min 3V IMPRESSION: 1. Status post remote plate and screw fixation of the distal fibula. Fully threaded screw along the tibiofibular syndesmosis. Orthopedic hardware appears grossly intact with ghost tracks identified. 2. Chronic healed fracture deformity of the distal tibia and fibula. 3. No acute visible fracture or dislocation. 4. Multi joint arthritic changes. 5. Soft tissue swelling about the ankle. 6. Plantar calcaneal heel spur. Spurring the dorsal midfoot.
[2022-11-26 12:43] VITALS: BP 175/101; PULSE 78; RESP 18; TEMP 36.9; O2SAT 96; BMI 46.8
--- NOTE | 2022-11-26 12:48 | ED.EXTPRO ---
HPI - Extremity Problem General Chief complaint: Extremity Problem Stated complaint: pain L leg Time Seen by Provider: 11/26/22 16:27 Related Data Home Medications Medication Instructions Recorded Confirmed clonazepam 2 mg tablet 2 mg PO BEDTIME 01/23/20 09/24/22 buprenorphine 2 mg-naloxone 0.5 mg 2 mg sublingual DAILY 09/24/22 09/24/22 sublingual film (Suboxone) latanoprost 0.005 % eye drops 1 drp BEDTIME 09/24/22 09/24/22 multivitamin 1 tab PO DAILY 09/24/22 09/24/22 omeprazole 20 mg capsule,delayed 20 mg PO DAILY 09/24/22 09/24/22 release Previous Rx's Medication Instructions Recorded Shower Chair #1 ea 10/17/20 hand held shower head #1 ea 10/17/20 hand rail for shower #1 ea 10/17/20 shower mat #1 ea 10/17/20 toilet seat elevator with handles #1 ea 10/17/20 amitriptyline 50 mg tablet 50 mg PO BEDTIME 90 days #90 tabs 07/03/22 lisinopril 10 mg tablet 10 mg PO DAILY 90 days #90 tabs 07/18/22 meclizine 25 mg tablet 25 mg PO DAILY PRN Vertigo 90 days 08/31/22 #90 tabs gabapentin 600 mg tablet 600 mg PO TID 30 days #90 tabs 09/23/22 aspirin 81 mg capsule 81 mg PO DAILY #30 caps 09/25/22 cephalexin 500 mg capsule 500 mg PO QID 10 days #40 caps 11/26/22 doxycycline hyclate 100 mg tablet 100 mg PO BID #20 tabs 11/26/22 Allergies Allergy/AdvReac Type Severity Reaction Status Date / Time hydromorphone [From DILAUDID] Allergy Severe STOPPED Verified 10/09/22 10:06 BREATHING aripiprazole [Abilify] AdvReac Intermediate anxious Verified 10/09/22 10:06 [facility] Past Medical History Medical History Anxiety Benign essential hypertension Degenerative joint disease of right ankle Diverticulosis large intestine w/o perforation or abscess w/o bleeding GERD (gastroesophageal reflux disease) GERD without esophagitis Glaucoma Hemorrhoids High BMI History of headache HTN (hypertension) Hx of substance abuse Insomnia Mild recurrent major depression Morbid obesity due to excess calories Morbid obesity with BMI of 45.0-49.9, adult Multiple fractures Normocytic anemia Opioid dependence on agonist therapy Renal calculi Sleep apnea Unable to bear weight Venous stasis Surgical History H/O gastric bypass H/O hand surgery History of cholecystectomy Hx of colonoscopy Hx of esophagogastroduodenoscopy Status post open reduction and internal fixation (ORIF) of fracture Family History Family History Mother No problems noted. Father No problems noted. Social History Social History Household Members: Significant Other Housing: Apartment Alcohol intake: never Patient Tobacco Use Status: Never used Tobacco Smoked in Last 30 Days: No e-Cigarette/Vaping Use: Never Used Second Hand Smoke Exposure: No Use of substances other than those prescribed or required for medical reasons: No Advance Directives: Yes Advance Directives on File: Yes Advance Directives Date on File: 09/26/22 service: No Current occupational status: disabled Cognitive needs: Yes (cane) Hearing needs: No Vision needs: Yes (glasses) Physical Exam Vital Signs: Vital Signs: Last Vital Signs Temp 98.1 F 11/26/22 18:23 Pulse 92 11/26/22 19:21 Resp 18 11/26/22 19:21 BP 169/90 H 11/26/22 19:21 Pulse Ox 96 11/26/22 19:21 O2 Del Method Room Air 11/26/22 19:21 BMI result Body Mass Index 46.8 Course Course Course Narrative: RME - 52 yo Dutch speaking male with history of substance abuse on suboxone, HTN, anxiety/depression, obesity, GERD, seizures who presents to the ER for evaluation of non-traumatic right lower leg & foot pain & swelling for the last 3 weeks. Exam c/w erythema of the lower leg, +pitting edema and tenderness of the calf. Plan: labs, U/S r/o DVT and XR foot and ankle Reevaluation(s) Reevaluation #1: see Dr. Tinajero's note for full evaluation and treatment plan Medications Administered Discontinued Medications Generic Name Dose Route Start Last Admin Trade Name Juan Luis PRN Reason Stop Dose Admin Cephalexin HCl 500 mg 11/26/22 17:09 11/26/22 19:14 Cephalexin 500 Mg Capsule PO 11/26/22 17:10 500 mg ONCE ONE Administration Doxycycline Monohydrate 100 mg 11/26/22 17:09 11/26/22 19:14 Doxycycline Monohydrate 100 Mg Capsule PO 11/26/22 17:10 100 mg ONCE ONE Administration Medical Decision Making Lab Data 11/26/22 13:41 11/26/22 13:41 Labs: Lab Results 11/26/22 11/26/22 Range/Units 13:41 13:41 WBC 4.8 (4.8-10.8) X10*3/uL RBC 4.00 L (4.60-5.80) X10*6/uL Hgb 10.4 L (14.0-18.0) g/dl Hct 33.2 L (42.0-52.0) % MCV 83.0 (80.0-98.0) fL MCH 26.0 L (27.0-33.0) pg MCHC 31.3 (31.0-36.0) g/dl RDW 15.5 (11.0-16.0) % Plt Count 172 (160-400) X10*3/uL MPV 9.9 (9.4-12.4) fL Immature Gran % (Auto) 0.2 (0.0-0.4) % Neut % (Auto) 45.8 (45-73) % Lymph % (Auto) 35.8 (20-40) % [place] % (Auto) 9.2 (2-11) % Eos % (Auto) 8.2 H (0-4) % Baso % (Auto) 0.8 (0-2) % Lymph # (Auto) 1.7 (1.2-4.9) X10*3/uL [place] # (Auto) 0.4 (0.1-1.2) X10*3/uL Eos # (Auto) 0.4 (0.0-0.4) X10*3/uL Baso # (Auto) 0.0 (0.0-0.2) X10*3/uL Abs Immat Gran (auto) 0.01 (0.00-0.03) X10*3/uL Absolute Neuts (auto) 2.2 (2.0-8.3) x10*3/uL Absolute Nucleated RBC 0.000 (0.0-0.012) X10*3/uL Nucleated RBC % (auto) 0.0 (0.0-0.2) /100WBC Sodium 141 (135-145) mmol/L Potassium 4.7 (3.3-5.1) mmol/L Chloride 106 (96-108) mmol/L Carbon Dioxide 29 (22-29) mmol/L Anion Gap 11 L (12-20) BUN 12 (9-16) mg/dL Creatinine 1.02 (0.5-1.4) mg/dL Estim Creat Clear Calc 107.6 Estimated GFR > 60 Random Glucose 101 (60-115) mg/dL Calcium 9.2 D (8.4-10.2) mg/dL Discharge Plan Discharge Clinical Impression: Cellulitis of right leg Patient Disposition: Home, Self-Care Instructions: Cellulitis (ED) Additional Instructions: Keep the right leg elevated Take antibiotic as prescribed Follow-up with PCP if not better Prescriptions: New cephalexin 500 mg capsule 500 mg PO QID 10 Days Qty: 40 0RF doxycycline hyclate 100 mg tablet 100 mg PO BID Qty: 20 0RF No Action (DME) Shower Chair Misc See Rx Instructions .ROUTE .MEDSUPPLY Qty: 1 0RF Rx Instructions: As directed (DME) shower mat See Rx Instructions .Route .MEDSUPPLY Qty: 1 0RF Rx Instructions: As directed (DME) toilet seat elevator with handles See Rx Instructions .Route .MEDSUPPLY Qty: 1 0RF Rx Instructions: As directed (DME) hand held shower head See Rx Instructions .Route .MEDSUPPLY Qty: 1 0RF Rx Instructions: As directed (DME) hand rail for shower See Rx Instructions .Route .MEDSUPPLY Qty: 1 0RF Rx Instructions: As directed amitriptyline 50 mg tablet 50 mg PO BEDTIME 90 Days Qty: 90 3RF lisinopril 10 mg tablet 10 mg PO DAILY 90 Days Qty: 90 3RF meclizine 25 mg tablet 25 mg PO DAILY PRN (Reason: Vertigo) 90 Days Qty: 90 1RF gabapentin 600 mg tablet 600 mg PO TID 30 Days Qty: 90 1RF clonazepam 2 mg Tablet 2 mg PO BEDTIME buprenorphine-naloxone [Suboxone] 2-0.5 mg film 2 mg sublingual DAILY multivitamin Tablet 1 tab PO DAILY latanoprost 0.005 % drops 1 drp BEDTIME omeprazole 20 mg Capsule,Delayed Release(Dr/Ec) 20 mg PO DAILY aspirin 81 mg capsule 81 mg PO DAILY Qty: 30 0RF Interventions: ED Discharge Assessment Last Done: 11/26/22 19:19 Discharge Date/Time: 11/26/22 19:22
[2022-11-26 13:48] LABS: MANUAL DIFF FLAG NO
[2022-11-26 13:51] LABS: Basophils Percent Auto 0.8 % (0-2); Eosinophils Absolute Auto 0.4 X10*3/uL (0.0-0.4); Eosinophils Percent Auto 8.2 % (0-4); Hematocrit 33.2 % (42.0-52.0); Hemoglobin 10.4 g/dl (14.0-18.0); Imm Gran Abs Auto 0.01 X10*3/uL (0.00-0.03); Imm Gran Pct Auto 0.2 % (0.0-0.4); Lymphocytes Absolute Auto 1.7 X10*3/uL (1.2-4.9); Lymphocytes Percent Auto 35.8 % (20-40); Mean Corpuscular HGB Conc 31.3 g/dl (31.0-36.0); Mean Platelet Volume 9.9 fL (9.4-12.4); Monocytes Absolute Auto 0.4 X10*3/uL (0.1-1.2); Monocytes Percent Auto 9.2 % (2-11); Neutrophils Absolute Auto 2.2 x10*3/uL (2.0-8.3); Neutrophils Percent Auto 45.8 % (45-73); Platelet Count 172 X10*3/uL (160-400); Red Cell Distribution Width 15.5 % (11.0-16.0); White Blood Count 4.8 X10*3/uL (4.8-10.8)
[2022-11-26 14:09] LABS: Anion Gap 11 (12-20); Blood Urea Nitrogen 12 mg/dL (9-16); Calcium 9.2 mg/dL (8.4-10.2); Carbon Dioxide 29 mmol/L (22-29); Chloride 106 mmol/L (96-108); Creatinine Clr Calc Pharmacy 107.6; Estimated Glomerular Filt Rate > 60; Glucose Random 101 mg/dL (60-115); Potassium 4.7 mmol/L (3.3-5.1); Sodium 141 mmol/L (135-145)
[2022-11-26 16:19] VITALS: BP 147/85; PULSE 95; RESP 16; TEMP 36.6; O2SAT 97
--- NOTE | 2022-11-26 17:08 | ED.EXTPRO ---
HPI - Extremity Problem General Chief complaint: Extremity Problem Stated complaint: pain L leg Time Seen by Provider: 11/26/22 16:27 Source: patient Mode of arrival: ambulatory Limitations: no limitations History of Present Illness HPI Narrative: Patient with dependent leg edema history of right ankle surgery about 3 years with history of recurrent cellulitis comes here for increased redness and pain and swelling of the right leg for last few weeks or fever no chills no recent trauma Related Data Home Medications Medication Instructions Recorded Confirmed clonazepam 2 mg tablet 2 mg PO BEDTIME 01/23/20 09/24/22 buprenorphine 2 mg-naloxone 0.5 mg 2 mg sublingual DAILY 09/24/22 09/24/22 sublingual film (Suboxone) latanoprost 0.005 % eye drops 1 drp BEDTIME 09/24/22 09/24/22 multivitamin 1 tab PO DAILY 09/24/22 09/24/22 omeprazole 20 mg capsule,delayed 20 mg PO DAILY 09/24/22 09/24/22 release Previous Rx's Medication Instructions Recorded Shower Chair #1 ea 10/17/20 hand held shower head #1 ea 10/17/20 hand rail for shower #1 ea 10/17/20 shower mat #1 ea 10/17/20 toilet seat elevator with handles #1 ea 10/17/20 amitriptyline 50 mg tablet 50 mg PO BEDTIME 90 days #90 tabs 07/03/22 lisinopril 10 mg tablet 10 mg PO DAILY 90 days #90 tabs 07/18/22 meclizine 25 mg tablet 25 mg PO DAILY PRN Vertigo 90 days 08/31/22 #90 tabs gabapentin 600 mg tablet 600 mg PO TID 30 days #90 tabs 09/23/22 aspirin 81 mg capsule 81 mg PO DAILY #30 caps 09/25/22 cephalexin 500 mg capsule 500 mg PO QID 10 days #40 caps 11/26/22 doxycycline hyclate 100 mg tablet 100 mg PO BID #20 tabs 11/26/22 Allergies Allergy/AdvReac Type Severity Reaction Status Date / Time hydromorphone [From DILAUDID] Allergy Severe STOPPED Verified 10/09/22 10:06 BREATHING aripiprazole [Abilify] AdvReac Intermediate anxious Verified 10/09/22 10:06 Review of Systems Review of Systems: Yes all other systems are reviewed and are negative [facility] Past Medical History Medical History Anxiety Benign essential hypertension Degenerative joint disease of right ankle Diverticulosis large intestine w/o perforation or abscess w/o bleeding GERD (gastroesophageal reflux disease) GERD without esophagitis Glaucoma Hemorrhoids High BMI History of headache HTN (hypertension) Hx of substance abuse Insomnia Mild recurrent major depression Morbid obesity due to excess calories Morbid obesity with BMI of 45.0-49.9, adult Multiple fractures Normocytic anemia Opioid dependence on agonist therapy Renal calculi Sleep apnea Unable to bear weight Venous stasis Surgical History H/O gastric bypass H/O hand surgery History of cholecystectomy Hx of colonoscopy Hx of esophagogastroduodenoscopy Status post open reduction and internal fixation (ORIF) of fracture Family History Family History Mother No problems noted. Father No problems noted. Social History Social History Household Members: Significant Other Housing: Apartment Alcohol intake: never Patient Tobacco Use Status: Never used Tobacco Smoked in Last 30 Days: No e-Cigarette/Vaping Use: Never Used Second Hand Smoke Exposure: No Use of substances other than those prescribed or required for medical reasons: No Advance Directives: Yes Advance Directives on File: Yes Advance Directives Date on File: 09/26/22 service: No Current occupational status: disabled Cognitive needs: Yes (cane) Hearing needs: No Vision needs: Yes (glasses) Physical Exam Vital Signs: Vital Signs: Last Vital Signs Temp 98.1 F 11/26/22 18:23 Pulse 92 11/26/22 19:21 Resp 18 11/26/22 19:21 BP 169/90 H 11/26/22 19:21 Pulse Ox 96 11/26/22 19:21 O2 Del Method Room Air 11/26/22 19:21 BMI result Body Mass Index 46.8 Appearance: Alert. Oriented X3. No acute distress. Eyes: PERRLA, No Nystagmus ENT: Pharynx normal. Oral Mucosa moist Neck: Normal inspection. Neck supple. CVS: Normal heart rate and rhythm. Pulses normal. Respiratory: No respiratory distress. Equal air entry bilateral, no wheezing/rales/rhonchi Abdomen: Soft and nontender. Bowel sounds are present, no mass palpable, no CVA tenderness Skin: Skin warm and dry. Erythema++. Normal skin turgor. Extremities: 3+ lower extremity edema. No calf tenderness Neuro: Oriented X 3. Medications Administered Discontinued Medications Generic Name Dose Route Start Last Admin Trade Name Derianq PRN Reason Stop Dose Admin Cephalexin HCl 500 mg 11/26/22 17:11/26/22 19:14 Cephalexin 500 Mg Capsule PO 11/26/22 17:10 500 mg ONCE ONE Administration Doxycycline Monohydrate 100 mg 11/26/22 17:11/26/22 19:14 Doxycycline Monohydrate 100 Mg Capsule PO 11/26/22 17:10 100 mg ONCE ONE Administration Medical Decision Making Medical Decision Making [facility] Narrative: Patient with right leg cellulitis Doppler was negative for DVT normal CBC count will treat as outpatient doxycycline cephalexin Lab Data [facility] Lab Attestation statement: I reviewed the patient's lab results. 11/26/22 13:41 11/26/22 13:41 Labs: Lab Results 11/26/22 11/26/22 Range/Units 13:41 13:41 WBC 4.8 (4.8-10.8) X10*3/uL RBC 4.00 L (4.60-5.80) X10*6/uL Hgb 10.4 L (14.0-18.0) g/dl Hct 33.2 L (42.0-52.0) % MCV 83.0 (80.0-98.0) fL MCH 26.0 L (27.0-33.0) pg MCHC 31.3 (31.0-36.0) g/dl RDW 15.5 (11.0-16.0) % Plt Count 172 (160-400) X10*3/uL MPV 9.9 (9.4-12.4) fL Immature Gran % (Auto) 0.2 (0.0-0.4) % Neut % (Auto) 45.8 (45-73) % Lymph % (Auto) 35.8 (20-40) % Anderson % (Auto) 9.2 (2-11) % Eos % (Auto) 8.2 H (0-4) % Baso % (Auto) 0.8 (0-2) % Lymph # (Auto) 1.7 (1.2-4.9) X10*3/uL Anderson # (Auto) 0.4 (0.1-1.2) X10*3/uL Eos # (Auto) 0.4 (0.0-0.4) X10*3/uL Baso # (Auto) 0.0 (0.0-0.2) X10*3/uL Abs Immat Gran (auto) 0.01 (0.00-0.03) X10*3/uL Absolute Neuts (auto) 2.2 (2.0-8.3) x10*3/uL Absolute Nucleated RBC 0.000 (0.0-0.012) X10*3/uL Nucleated RBC % (auto) 0.0 (0.0-0.2) /100WBC Sodium 141 (135-145) mmol/L Potassium 4.7 (3.3-5.1) mmol/L Chloride 106 (96-108) mmol/L Carbon Dioxide 29 (22-29) mmol/L Anion Gap 11 L (12-20) BUN 12 (9-16) mg/dL Creatinine 1.02 (0.5-1.4) mg/dL Estim Creat Clear Calc 107.6 Estimated GFR > 60 Random Glucose 101 (60-115) mg/dL Calcium 9.2 D (8.4-10.2) mg/dL Discharge Plan Discharge Clinical Impression: Cellulitis of right leg Patient Disposition: Home, Self-Care Instructions: Cellulitis (ED) Additional Instructions: Keep the right leg elevated Take antibiotic as prescribed Follow-up with PCP if not better Prescriptions: New cephalexin 500 mg capsule 500 mg PO QID 10 Days Qty: 40 0RF doxycycline hyclate 100 mg tablet 100 mg PO BID Qty: 20 0RF No Action (DME) Shower Chair Misc See Rx Instructions .ROUTE .MEDSUPPLY Qty: 1 0RF Rx Instructions: As directed (DME) shower mat See Rx Instructions .Route .MEDSUPPLY Qty: 1 0RF Rx Instructions: As directed (DME) toilet seat elevator with handles See Rx Instructions .Route .MEDSUPPLY Qty: 1 0RF Rx Instructions: As directed (DME) hand held shower head See Rx Instructions .Route .MEDSUPPLY Qty: 1 0RF Rx Instructions: As directed (DME) hand rail for shower See Rx Instructions .Route .MEDSUPPLY Qty: 1 0RF Rx Instructions: As directed amitriptyline 50 mg tablet 50 mg PO BEDTIME 90 Days Qty: 90 3RF lisinopril 10 mg tablet 10 mg PO DAILY 90 Days Qty: 90 3RF meclizine 25 mg tablet 25 mg PO DAILY PRN (Reason: Vertigo) 90 Days Qty: 90 1RF gabapentin 600 mg tablet 600 mg PO TID 30 Days Qty: 90 1RF clonazepam 2 mg Tablet 2 mg PO BEDTIME buprenorphine-naloxone [Suboxone] 2-0.5 mg film 2 mg sublingual DAILY multivitamin Tablet 1 tab PO DAILY latanoprost 0.005 % drops 1 drp BEDTIME omeprazole 20 mg Capsule,Delayed Release(Dr/Ec) 20 mg PO DAILY aspirin 81 mg capsule 81 mg PO DAILY Qty: 30 0RF Interventions: ED Discharge Assessment Last Done: 11/26/22 19:19 Discharge Date/Time: 11/26/22 19:22
[2022-11-26 18:23] VITALS: BP 158/109; PULSE 87; RESP 14; TEMP 36.7; O2SAT 96
[2022-11-26] MEDS: cephALEXin 500 MG CAPSULE PO (19:14)
[2022-11-26] MEDS: Doxycycline Monohydrate 100 MG CAPSULE PO (19:14)
[2022-11-26 19:21] VITALS: BP 169/90; PULSE 92; RESP 18; O2SAT 96
== END 2022-11-26 19:22 | disposition home or self-care (01) ==
PROVIDERS: Physician Assistant; Emergency Provider Internal Medicine; PCP Internal Medicine
DX: L03.115 Cellulitis of right lower limb (principal); M25.571 Pain in right ankle and joints of right foot; R60.0 Localized edema; Z79.899 Other long term (current) drug therapy
CPT/HCPCS: 36415; 73610; 73630; 80048; 85025; 93971; 99283; 99284

== ENCOUNTER 2022-12-24 07:37 | Outpatient (AMB) | payer OTHER, SELFPAY ==
[2022-12-24 07:43] VITALS: BP 128/78; PULSE 93; O2SAT 96; BMI 46.0
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
== END 2022-12-24 09:46 | disposition home or self-care (01) ==
PROVIDERS: PCP Internal Medicine; Visit Provider Physician Assistant
DX: M79.89 Other specified soft tissue disorders (principal); H40.9 Unspecified glaucoma
CPT/HCPCS: 99214

== ENCOUNTER 2023-10-14 09:52 | Outpatient (AMB) | payer OTHER, SELFPAY ==
[2023-10-14 09:55] VITALS: BP 120/72; BMI 35.2
--- NOTE | 2023-10-14 09:55 | A.OFFPC_ITS ---
Vital Signs 10/14/23 09:55 Height 5 ft 6 in Weight 218 lb BMI 35.2 BP 120/72 Blood Pressure Location Lt brachial Position Sitting Intake Visit Reasons: PE Intake Note: Patient here for a physical exam Advisory Software Engineer Required: No Accompanied by: Self / Same As Patient Allergies hydromorphone [From DILAUDID] Allergy (Severe, Verified 10/14/23 10:05) STOPPED BREATHING aripiprazole [Abilify] Adverse Reaction (Intermediate, Verified 10/14/23 10:05) anxious lisinopril Adverse Reaction (Intermediate, Verified 10/14/23 10:05) cough Medication List - Last Reconciled 10/14/23 by Kylee Farrar MD amitriptyline 50 mg PO BEDTIME 90 days buprenorphine-naloxone 2-0.5 mg (Suboxone) 2 mg sublingual DAILY clonazepam 2 mg PO BEDTIME compr.stocking,knee,long,x-lrg Need for 10-15 mm of Hg pressure dorzolamide-timolol (PF) 2-0.5 % 1 drp ophthalmic (eye) BID 30 days gabapentin 600 mg PO TID 30 days [hand held shower head As directed] [hand rail for shower As directed] latanoprost 0.005% 1 drp ophthalmic (eye) BEDTIME 30 days meclizine 25 mg PO DAILY PRN 90 days multivitamin 1 tab PO DAILY omeprazole 20 mg PO DAILY Shower Chair As directed [shower mat As directed] [toilet seat elevator with handles As directed] Tobacco use date assessed: 09/12/22 Dental Screening Dental Screen Date: 10/14/23 Did you have a dental visit in the last 12 months?: Yes Did you have a dental problem in the last 6 months where you did not have access to dental care?: No Was dental information given to patient?: Patient has dentist HPI HPI Comments History of Present Illness Details This is a 53-year-old male with opioid dependence on agonist therapy and mild recurrent major depression that comes for his physical exam. On Suboxone for opioid dependence and doing well. Depression has been stable and this is follow by Psychiatry. Last colonoscopy was 2019 and was normal. Next colonoscopy should be 2029. [facility] Medical History (Updated 10/14/23 @ 12:25 by Kylee Farrar MD) Preoperative examination Seizure Normocytic anemia Opioid dependence on agonist therapy Mild recurrent major depression Morbid obesity due to excess calories Unable to bear weight Morbid obesity with BMI of 45.0-49.9, adult Hx of substance abuse GERD without esophagitis Benign essential hypertension Degenerative joint disease of right ankle Hemorrhoids Diverticulosis large intestine w/o perforation or abscess w/o bleeding High BMI Sleep apnea Multiple fractures Renal calculi Glaucoma Anxiety Insomnia History of headache GERD (gastroesophageal reflux disease) Venous stasis HTN (hypertension) Surgical History H/O gastric bypass Status post open reduction and internal fixation (ORIF) of fracture Hx of colonoscopy H/O hand surgery Hx of esophagogastroduodenoscopy History of cholecystectomy Family History Mother No problems noted. Father No problems noted. Social History Household Members: Significant Other Housing: Apartment Alcohol intake: never Patient Tobacco Use Status: Never used Tobacco e-Cigarette/Vaping Use: Never Used Second Hand Smoke Exposure: No Advance Directives Date on File: 09/26/22 service: No Current occupational status: disabled Cognitive needs: Yes (cane) Hearing needs: No Vision needs: Yes (glasses) Questionnaire PHQ-9 Over the last 2 weeks, how often have you been bothered by any of the following problems? 1. Little interest or pleasure in doing things: several days 2. Feeling down, depressed, or hopeless: several days 3. Trouble falling or staying asleep, or sleeping too much: not at all 4. Feeling tired or having little energy: not at all 5. Poor appetite or overeating: not at all 6. Feeling bad about yourself - or that you are a failure or have let yourself or your family down: not at all 7. Trouble concentrating on things, such as reading the newspaper or watching television: not at all 8. Moving or speaking so slowly that other people could have noticed. Or the opposite - being so fidgety or restless that you have been moving around a lot more than usual: not at all 9. Thoughts that you would be better off or of hurting yourself in some way: not at all Total score: 2 Depression Screening Interpretation: Positive Depression Screening Follow-up: Existing condition, In treatment, Community Mental Health Worker F/U and Follow- up Visit Requested Depression Screening Done: Yes 81552 - PHQ-9 Billing: Yes Source: Developed by Drs. Javier Bird, Karen Priest, Jareth Gaviria and colleagues, with an educational aleida from [employer]. Thrive Questionnaire Date Thrive assessed: 10/14/23 I am a: Patient What is your living situation today?: I have a steady place to live Within the past 12 months, did the food you bought not last and you didn't have the money to get more?: Never true Within the past 12 months, did you worry whether your food would run out before you got money to buy more?: Never true Do you have trouble paying for medicines?: No Do you have trouble getting transportation to medical appointments?: No Do you have trouble paying your heating and electricity bill?: No Do you have trouble taking care of your child, family member or friend?: No Do you have trouble with day-to-day activities such as bathing, preparing meals, shopping, managing finances, etc.?: No Are you currently unemployed and looking for a job?: No Are you interested in more education?: No Please select the resources that you would like help with: None Currently or been in a relationship where the following occur: no concerns reported THRIVE Score: 0 AUDIT C Alcohol Use Questionnaire (AUDIT-C) 1. How often do you have a drink containing alcohol?: Never Total Score: 0 AIDAN-7 AMB Questionnaire AIDAN-7 Date AIDAN - 7 assessed: 10/14/23 Feeling nervous, anxious, or on edge: 0 = Not at all Not being able to stop or control worryin = Not at all Worrying too much about different things: 0 = Not at all Trouble relaxin = Not at all Being so restless that it is hard to sit still: 0 = Not at all Becoming easily annoyed or irritable: 0 = Not at all Feeling afraid as if something awful might happen: 0 = Not at all Total AIDAN-7 score (0-4 normal; 5-9 mild; 10-14 moderate; 15-21 severe): 0 Source: Developed by Drs. Javier Bird, Karen Priest, Jareth Gaviria and colleagues, with an educational aleida from [employer]. AIDAN-7 Assessment Billing AIDAN-7 Assessment Tool: AIDAN-7 Assessment 53297 Review of Systems Const All systems reviewed & are unremarkable except as noted in HPI and below Card Denies chest pain at rest, Denies chest pain with activity, Denies edema, Denies irregular heart rhythm, Denies claudication, Denies dyspnea, Denies dyspnea on exertion, Denies orthopnea, Denies paroxysmal nocturnal dyspnea and Denies slow heart rate Resp Denies cough, Denies dyspnea and Denies dyspnea on exertion GI Denies abdominal pain, Denies change in bowel habits, Denies excessive flatus, Denies nausea and Denies vomiting Denies urinary hesitancy, Denies urinary incontinence and Denies urinary urgency Physical exam (Primary Care) Vital Signs: Last Vital Signs BP 120/72 10/14/23 09:55 BMI result Body Mass Index 35.2 BMI Assessment/Plan discussion: High BMI High, discussed plan: lifestyle, weight reduction, dietary and physical activity Tobacco/Smoking Status: Tobacco use Status Tobacco use date assessed 09/12/22 10/14/23 10:02 Patient Tobacco Use Status Never used Tobacco 10/14/23 10:02 e-Cigarette/Vaping Use Never Used 10/14/23 10:02 PHQ-9: PHQ-9 Score PHQ-9: Total score 0 10/14/23 10:09 Depression Screening Interpretation: Positive Depression Screening Follow-up: Existing condition, In treatment, Community Mental Health Worker F/U and Follow- up Visit Requested Thrive Assessment: Date of Thrive Assessment Date Thrive assessed 10/14/23 10/14/23 10:02 Currently or been in a relationship where the following occur: no concerns reported [facility] Head: Yes normal to inspection, Yes normocephalic and Yes atraumatic Ears: external ears normal Eyes Other: right eye prothesis General: appearance normal, both eyes and all related structures Eyelids: Yes eyelids normal Conjunctivae: conjunctivae normal Neck Neck: Yes normal visual inspection and Yes supple Resp Effort & Inspection: normal respiratory effort Auscultation: clear to auscultation bilaterally Cardio Jugular venous distension: no JVD Rate: regular rate Rhythm: regular rhythm Heart sounds: S1 normal heart sound present and S2 normal heart sound present GI Inspection: Yes normal to inspection Palpation (GI): Soft to palpation and nontender Auscultation: normal bowel sounds Skin General skin exam: no rashes or lesions noted Neuro General: no focal motor deficits Extrem General: Yes full ROM Psych Appearance: grossly normal Assessment and Plan Assessment & Plan (1) Physical exam: Code(s): Z00.00 - Encounter for general adult medical examination without abnormal findings Plan: Repeat in a year. (2) Mild recurrent major depression: Code(s): F33.0 - Major depressive disorder, recurrent, mild Plan: Continue amitriptyline. Follow-up with psychiatry. (3) Opioid dependence on agonist therapy: Code(s): F11.20 - Opioid dependence, uncomplicated Plan: Continue Suboxone. Orders: Orders Complete Blood Count Auto Diff Today D64.9 - Anemia, unspecified IRON PROFILE Today D64.9 - Anemia, unspecified Vitamin B12 and Folate Today E53.8 - Deficiency of other specified B group vitamins Vitamin D 25-OH Total Today E55.9 - Vitamin D deficiency, unspecified Comprehensive [place]. Panel Fast Today Z00.00 - Encounter for general adult medical examination without abnormal findings Lipid Panel Today Z00.00 - Encounter for general adult medical examination without abnormal findings Coding Level of Care Code Est Pt Prev Care 40-64y(41274) Diagnoses Physical exam Z00.00 Mild recurrent major depression F33.0 Opioid dependence on agonist therapy F11.20 Additional Codes AIDAN-7 Assessment Billing - AIDAN-7 Assessment Tool: AIDAN-7 Assessment 77063 ([id number]) Time Spent (min) 30
== END 2023-10-14 10:20 | disposition home or self-care (01) ==
PROVIDERS: PCP Internal Medicine; Visit Provider Internal Medicine
DX: Z00.00 Encounter for general adult medical examination without abnormal findings (principal); F33.0 Major depressive disorder, recurrent, mild; F11.20 Opioid dependence, uncomplicated
CPT/HCPCS: 99396

== ENCOUNTER 2023-11-23 09:03 | Outpatient (REF) | payer OTHER, SELFPAY ==
[2023-11-23 09:40] LABS: MANUAL DIFF FLAG NO
[2023-11-23 10:07] LABS: Basophils Percent Auto 0.5 % (0-2); Eosinophils Absolute Auto 0.2 X10*3/uL (0.0-0.4); Eosinophils Percent Auto 3.5 % (0-4); Hematocrit 33.2 % (42.0-52.0); Hemoglobin 10.7 g/dl (14.0-18.0); Imm Gran Abs Auto 0.02 X10*3/uL (0.00-0.03); Imm Gran Pct Auto 0.3 % (0.0-0.4); Lymphocytes Percent Auto 16.3 % (20-40); Mean Corpuscular HGB Conc 32.2 g/dl (31.0-36.0); Mean Corpuscular Hemoglobin 29.2 pg (27.0-33.0); Mean Corpuscular Volume 90.7 fL (80.0-98.0); Mean Platelet Volume 12.1 fL (9.4-12.4); Monocytes Absolute Auto 0.6 X10*3/uL (0.1-1.2); Monocytes Percent Auto 9.3 % (2-11); Neutrophils Absolute Auto 4.2 x10*3/uL (2.0-8.3); Neutrophils Percent Auto 70.1 % (45-73); Platelet Count 154 X10*3/uL (160-400); Red Blood Count 3.66 X10*6/uL (4.60-5.80); Red Cell Distribution Width 15.1 % (11.0-16.0)
[2023-11-23 10:54] LABS: Alanine Aminotransferase 20 U/L (0-40); Alkaline Phosphatase 99 U/L (39-117); Anion Gap 6 (12-20); Aspartate Amino Transferase 29 U/L (5-37); Bilirubin Total 0.6 mg/dL (0.0-1.0); Blood Urea Nitrogen 16 mg/dL (9-16); Calcium 8.1 mg/dL (8.4-10.2); Carbon Dioxide 30 mmol/L (22-29); Chloride 108 mmol/L (96-108); Cholesterol 125 mg/dL (<200); Estimated Glomerular Filt Rate > 60; Glucose Fasting 88 mg/dL (60-99); HDL Cholesterol 47 mg/dL (>40); Iron 33 mcg/dL (45-160); LDL Cholesterol Calculated 69 mg/dL (<100); Percent Iron Saturation 13 % (15-50); Potassium 4.4 mmol/L (3.3-5.1); Sodium 140 mmol/L (135-145); Total Iron Binding Capacity 262 mcg/dL (228-428); Total Protein 5.9 g/dL (6.5-8.0); Triglycerides 46 mg/dL (<150); Unsaturated Iron Binding 229 ug/dL; Vitamin D 25-OH Total 34.8 ng/mL (>30)
[2023-11-23 11:10] LABS: Folate 11.6 ng/mL (> or = 4.0); Vitamin B12 533 pg/mL (200-900)
== END 2023-11-23 09:04 | disposition home or self-care (01) ==
LOC: HO.LAB 09:03
PROVIDERS: PCP Internal Medicine; Visit Provider Internal Medicine
DX: Z00.00 Encounter for general adult medical examination without abnormal findings (principal); D64.9 Anemia, unspecified; E55.9 Vitamin D deficiency, unspecified; E53.8 Deficiency of other specified B group vitamins
CPT/HCPCS: 36415; 80053; 80061; 82306; 82607; 82746; 83540; 85025

== ENCOUNTER 2024-01-29 09:59 | Outpatient (AMB) | payer OTHER, SELFPAY ==
[2024-01-29 10:14] VITALS: BP 118/78; PULSE 76; O2SAT 90; BMI 33.9
--- NOTE | 2024-01-29 10:14 | A.OFFPC_ITS ---
Vital Signs 01/29/24 10:14 Height 5 ft 6 in Weight 210 lb BMI 33.9 BP 118/78 Blood Pressure Location Lt brachial Position Sitting Pulse 76 Pulse Source Pulse Oximeter Pulse Oximetry (%) 90 L Oxygen Delivery Method Room Air Intake Visit Reasons: EDF [facility] 01/01 Allergic Reaction Petroleum Products Sales Representative Required: Yes Petroleum Products Sales Representative Language: Testing Engineer Name: Izabela [id number] Accompanied by: Self / Same As Patient Allergies hydromorphone [From DILAUDID] Allergy (Severe, Verified 01/29/24 10:16) STOPPED BREATHING aripiprazole [Abilify] Adverse Reaction (Intermediate, Verified 01/29/24 10:16) anxious lisinopril Adverse Reaction (Intermediate, Verified 01/29/24 10:16) cough Tobacco use date assessed: 01/29/24 Dental Screening Dental Screen Date: 10/14/23 HPI HPI Comments History of Present Illness Details 53 y/o male patient who presents to the clinic today for HDF. He was admitted at [facility] on 01/12/24 due to Anaphylactic reaction, was intubated in MICU. He was discharged home 01/13/24 on stable condition. He has no concerns today. [facility] Medical History (Updated 10/14/23 @ 12:25 by Kylee Farrar MD) Preoperative examination Seizure Normocytic anemia Opioid dependence on agonist therapy Mild recurrent major depression Morbid obesity due to excess calories Unable to bear weight Morbid obesity with BMI of 45.0-49.9, adult Hx of substance abuse GERD without esophagitis Benign essential hypertension Degenerative joint disease of right ankle Hemorrhoids Diverticulosis large intestine w/o perforation or abscess w/o bleeding High BMI Sleep apnea Multiple fractures Renal calculi Glaucoma Anxiety Insomnia History of headache GERD (gastroesophageal reflux disease) Venous stasis HTN (hypertension) Surgical History H/O gastric bypass Status post open reduction and internal fixation (ORIF) of fracture Hx of colonoscopy H/O hand surgery Hx of esophagogastroduodenoscopy History of cholecystectomy Family History Mother No problems noted. Father No problems noted. Social History Household Members: Significant Other Housing: Apartment Alcohol intake: never Patient Tobacco Use Status: Never used Tobacco Tobacco use type: Cigarette e-Cigarette/Vaping Use: Never Used Second Hand Smoke Exposure: No Advance Directives Date on File: 09/26/22 service: No Current occupational status: disabled Cognitive needs: Yes (cane) Hearing needs: No Vision needs: Yes (glasses) Questionnaire PHQ-9 Over the last 2 weeks, how often have you been bothered by any of the following problems? 1. Little interest or pleasure in doing things: several days 2. Feeling down, depressed, or hopeless: several days 3. Trouble falling or staying asleep, or sleeping too much: not at all 4. Feeling tired or having little energy: not at all 5. Poor appetite or overeating: not at all 6. Feeling bad about yourself - or that you are a failure or have let yourself or your family down: not at all 7. Trouble concentrating on things, such as reading the newspaper or watching television: not at all 8. Moving or speaking so slowly that other people could have noticed. Or the opposite - being so fidgety or restless that you have been moving around a lot more than usual: not at all 9. Thoughts that you would be better off or of hurting yourself in some way: not at all Total score: 2 Depression Screening Interpretation: Positive Depression Screening Follow-up: Existing condition, In treatment, Community Mental Health Worker F/U and Follow- up Visit Requested Depression Screening Done: Yes 74462 - PHQ-9 Billing: Yes Source: Developed by Drs. Javier Bird, Jareth Rivera and colleagues, with an educational aleida from [employer]. Thrive Questionnaire Date Thrive assessed: 10/14/23 AUDIT C Alcohol Use Questionnaire (AUDIT-C) 1. How often do you have a drink containing alcohol?: Never Total Score: 0 AIDAN-7 AMB Questionnaire AIDAN-7 Date AIDAN - 7 assessed: 10/14/23 Source: Developed by Drs. Javier Bird, Jareth Rivera and colleagues, with an educational aleida from [employer]. Review of Systems Const All systems reviewed & are unremarkable except as noted in HPI and below Physical exam (Primary Care) Vital Signs: Last Vital Signs Pulse 76 01/29/24 10:14 BP 118/78 01/29/24 10:14 Pulse Ox 90 L 01/29/24 10:14 Oxygen Delivery Method Room Air 01/29/24 10:14 BMI result Body Mass Index 33.9 Tobacco/Smoking Status: Tobacco use Status Tobacco use date assessed 01/29/24 01/29/24 10:19 Patient Tobacco Use Status Never used Tobacco 01/29/24 10:14 Tobacco use type Cigarette 01/29/24 10:19 e-Cigarette/Vaping Use Never Used 01/29/24 10:14 PHQ-9: PHQ-9 Score PHQ-9: Total score 2 01/29/24 10:19 Depression Screening Interpretation: Positive Depression Screening Follow-up: Existing condition, In treatment, Community Mental Health Worker F/U and Follow- up Visit Requested Thrive Assessment: Date of Thrive Assessment Date Thrive assessed 10/14/23 01/29/24 10:14 Const General: cooperative, comfortable and no acute distress Nutritional Appearance: overweight Orientation/consciousness: patient oriented x3 Resp Effort & Inspection: normal respiratory effort and able to speak in complete sentences Auscultation: clear to auscultation bilaterally, no crackles, no rales, no rhonchi and no wheezes Cardio Heart sounds: S1 normal heart sound present and S2 normal heart sound present Neuro General: patient oriented x3 Coding Level of Care Code Est Pt Level 4 (70004) Diagnoses Anaphylaxis, initial encounter T78.2XXA Encounter type: initial encounter Time Spent (min) 20 Comment Spent reviewing hospital notes. Assessment & Plan Assessment & Plan (1) Anaphylactic reaction: Code(s): T78.2XXA - Anaphylactic shock, unspecified, initial encounter Qualifiers: Encounter type: initial encounter Qualified Code(s): T78.2XXA - Anaphylactic shock, unspecified, initial encounter Plan: Stable Advised to use EPI Pen F/U with PCP
== END 2024-01-29 10:58 | disposition home or self-care (01) ==
PROVIDERS: PCP Internal Medicine; Visit Provider Nurse Practitioner Family
DX: T78.2XXA Anaphylactic shock, unspecified, initial encounter (principal)

== ENCOUNTER → 2024-01-29 09:59 | Outpatient (BNVA) | payer OTHER, SELFPAY | PROVIDERS: PCP Internal Medicine; Visit Provider Nurse Practitioner Family | DX: T78.2XXA Anaphylactic shock, unspecified, initial encounter (principal) | CPT/HCPCS: 96127; 99212 ==